=== PATIENT | female | born 1985 | race Caucasian/White ===

== ENCOUNTER → 2016-07-09 | Outpatient (REF) | payer BC ==
[~2016-07-09] MED LIST: ACET50TA PO; ANUS2.5C2 PR; DOCU10ELUD PO; IBUP80TA PO; MOM30SS PO; PRENTAB74 PO; ZOFR4SOL PO
[2016-07-09 14:16] LABS: FOLLICLE STIMULATING HORMONE 6.6 mIU/mL; LUTEINIZING HORMONE 3.2 mIU/mL
== END ==
LOC: M LABDRAW1 13:04
PROVIDERS: ATTEND Family Medicine
DX: N92.6 Irregular menstruation, unspecified (principal)

== ENCOUNTER → 2016-07-16 | Outpatient (CLI) | payer BC ==
--- NOTE | 2016-07-16 21:18 | REP ---
Clinical: Abnormal menstrual cycles. Infertility . Technique: Transabdominal pelvic ultrasound followed by transvaginal examination for better evaluation of the endometrium and adnexa with color Doppler evaluation of the ovaries. Findings: Bladder is unremarkable. Normal anteverted uterus measures 8.8 x 4.3 x 5.4 cm . The endometrial complex measures 11.0 mm thickness. No discrete uterine or endometrial abnormalities are appreciated. Bilateral ovaries are normal in appearance and vascularity without evidence for torsion. Right ovary measures 3.3 x 2.1 x 2.1 cm ; R I = 0.36 . Left ovary measures 3.3 x 2.4 x 3.2 cm with 1.5 cm dominant follicle ; R I = 0.55 . Trace pelvic fluid. No adnexal mass lesion. . Impression: 1. Normal pelvic ultrasound. Signed by Chacorta Allen MD 07/16/2016 09:09 P
== END ==
LOC: M RAD 10:17
PROVIDERS: ATTEND Family Medicine
DX: N92.6 Irregular menstruation, unspecified (principal)

== ENCOUNTER → 2016-08-11 | Outpatient (CLI) | payer BC ==
[2016-08-11 17:18] LABS: BASO # 0.1 K/mm3 (0.0-0.2); BASO % 0.6 % (0.0-1.0); EOS # 0.2 K/mm3 (0.0-0.50); EOS % 1.8 % (0.0-3.0); LARGE UNSTAINED CELL # 0.2 K/mm3 (0.0-0.4); LARGE UNSTAINED CELL % 1.9 % (0.0-4.0); LYMPH % 34.7 % (24.0-44.0); MEAN CORPUSCULAR HGB CONC 33.1 g/dl (32.0-36.5); MEAN CORPUSCULAR VOLUME 87.6 fl (80.0-96.0); MONO # 0.5 K/mm3 (0.0-0.8); MONO % 4.5 % (0.0-5.0); NEUTROPHILS # 6.5 K/mm3 (1.8-7.7); NEUTROPHILS % 56.6 % (36.0-66.0); PLATELET COUNT, AUTOMATED 396 k/mm3 (150-450); RED CELL DISTRIBUTION WIDTH 13.3 % (11.5-14.5); WHITE BLOOD COUNT 11.5 K/mm3 (4.0-10.0)
[2016-08-13 11:18] LABS: HBsAg Prenatal NEGATIVE (NEGATIVE)
== END ==
LOC: M WUC 14:10
PROVIDERS: ATTEND Advanced Practice Midwife
DX: Z36 Encounter for antenatal screening of mother (principal); Z3A.00 Weeks of gestation of pregnancy not specified

== ENCOUNTER → 2016-08-13 | Outpatient (CLI) | payer BC | LOC: M WUC 11:30 | PROVIDERS: ATTEND Family Medicine | DX: R06.02 Shortness of breath (principal) ==

== ENCOUNTER → 2016-09-09 | Outpatient (REF) | payer BC | LOC: M LAB REF 17:00 | PROVIDERS: ATTEND Advanced Practice Midwife | DX: Z36 Encounter for antenatal screening of mother (principal); Z3A.00 Weeks of gestation of pregnancy not specified ==

== ENCOUNTER → 2016-10-01 | Outpatient (REF) | payer BC | LOC: M LAB REF 17:10 | PROVIDERS: ATTEND Family Medicine | DX: N39.0 Urinary tract infection, site not specified (principal) ==

== ENCOUNTER → 2016-10-03 | Outpatient (CLI) | payer BC ==
--- NOTE | 2016-10-03 09:28 | REP ---
RIGHT UPPER QUADRANT ULTRASOUND: Real-time sonographic evaluation of the right upper quadrant performed. Gallbladder demonstrates no evidence of intraluminal sludge or calculi, wall thickening or pericholecystic fluid. There is no intrahepatic or extrahepatic biliary dilatation, common bile duct measuring 4 mm in diameter. Liver demonstrates diffuse heterogeneous increased echotexture compatible with diffuse fibrofatty infiltration. No liver or pancreatic mass is seen sonographically. Right kidney demonstrates no hydronephrosis or nephrolithiasis with normal size at 13.1 cm in length. IMPRESSION: Diffuse fibrofatty infiltration of the liver. Signed by Xu Young MD 10/03/2016 09:49 A
== END ==
LOC: M RAD 08:18
PROVIDERS: ATTEND Family Medicine
DX: K76.0 Fatty (change of) liver, not elsewhere classified (principal); R10.13 Epigastric pain

== ENCOUNTER → 2016-10-17 | Outpatient (REF) | payer BC | LOC: M LAB REF 15:24 | PROVIDERS: ATTEND Obstetrics & Gynecology | DX: R30.0 Dysuria (principal) ==

== ENCOUNTER → 2016-11-05 | Outpatient (REF) | payer BC | LOC: M LAB REF 16:56 | PROVIDERS: ATTEND Advanced Practice Midwife | DX: Z34.82 Encounter for supervision of other normal pregnancy, second trimester (principal) ==

== ENCOUNTER → 2016-11-07 | Outpatient (CLI) | payer BC ==
--- NOTE | 2016-11-07 11:01 | REP ---
OB ULTRASOUND: Real-time sonographic evaluation of the gravid uterus performed. There is a single living intrauterine gestation, estimated gestational age 18 weeks 2 days, EDC 04/08/2017. Today's measurements indicate appropriate growth. BPD 39 mm = 18 weeks 0 days, 38th percentile HC 150 mm = 18 weeks 0 days, 42nd percentile AC 131 mm = 18 weeks 4 days, 57th percentile Femur length 26 mm = 18 weeks 0 days, 40th percentile HC/AC ratio 1.14 within normal range. Estimated weight 233 grams, 46th percentile. Cervix is closed and measures 4.1 cm in length. heart rate 160 beats per minute. SEEN/GROSSLY UNREMARKABLE Lateral ventricles Yes Posterior fossa No Upper lip No Four-chamber heart No LVOT No RVOT No Stomach Yes Cord insertion Yes Three vessel cord Yes Kidneys Yes Bladder Yes Spine No position: Vertex. Placenta: Anterior and grade 0 with no previa or abruption. Amniotic fluid: Within normal limits. Signed by Xu Young MD 11/07/2016 02:23 P
== END ==
LOC: M RAD 09:21
PROVIDERS: ATTEND Specialist
DX: Z36 Encounter for antenatal screening of mother (principal); Z3A.18 18 weeks gestation of pregnancy

== ENCOUNTER → 2016-12-10 | Outpatient (CLI) | payer BC ==
--- NOTE | 2016-12-10 19:13 | REP ---
OB ULTRASOUND: Real-time sonographic evaluation of the gravid uterus is performed. There is a single living intrauterine gestation. The estimated gestational age is 23 weeks, EDC 04/08/17. Today's measurements indicate appropriate growth. BPD 56 mm = 23 weeks 2 days, 56th percentile HC 208 mm = 22 weeks 6 days, 47th percentile AC 189 mm = 23 weeks 5 days, 65th percentile FL 38 mm = 22 weeks 1 day, 30th percentile HC/AC ratio 1.10, within normal range. Estimated weight 556 grams, 46th percentile. Cervix is closed and measures 5.8 cm in length. heart rate 150 beats per minute. SEEN/GROSSLY UNREMARKABLE Lateral ventricles yes Posterior fossa yes Upper lip no Four-chamber heart yes LVOT no RVOT no Stomach yes Cord insertion yes Three vessel cord yes Kidneys yes Bladder yes Spine yes position: Transverse with head toward the maternal left side. Placenta: Anterior and grade 1 with no previa or abruption. Amniotic fluid: Within normal limits. Signed by Xu Young MD 12/10/2016 07:52 P
== END ==
LOC: M RAD 16:15
PROVIDERS: ATTEND Obstetrics & Gynecology
DX: Z36.89 Encounter for other specified antenatal screening (principal); Z3A.23 23 weeks gestation of pregnancy

== ENCOUNTER → 2016-12-30 | Outpatient (CLI) | payer BC ==
[2016-12-30 13:12] LABS: MEAN CORPUSCULAR HEMOGLOBIN 27.9 pg (27.0-33.0); MEAN CORPUSCULAR HGB CONC 32.1 g/dl (32.0-36.5); MEAN CORPUSCULAR VOLUME 87.2 fl (80.0-96.0); PLATELET COUNT, AUTOMATED 326 10^3/uL (150-450); RED CELL DISTRIBUTION WIDTH 13.7 % (11.5-14.5); WHITE BLOOD COUNT 13.6 10^3/uL (4.0-10.0)
== END ==
LOC: M SMT 08:47
PROVIDERS: ATTEND Obstetrics & Gynecology
DX: Z34.82 Encounter for supervision of other normal pregnancy, second trimester (principal)

== ENCOUNTER → 2017-01-15 | Outpatient (CLI) | payer BC | LOC: M LAB 08:21 | PROVIDERS: ATTEND Obstetrics & Gynecology | DX: Z36.89 Encounter for other specified antenatal screening (principal); Z3A.00 Weeks of gestation of pregnancy not specified ==

== ENCOUNTER → 2017-01-20 | Outpatient (CLI) | payer BC ==
--- NOTE | 2017-01-21 07:58 | REP ---
FOLLOWUP OBSTETRICAL ULTRASOUND: COMPARISON: FINDINGS: Ultrasound examination demonstrates single live intrauterine in transverse lie with head towards the maternal left side. motion was identified by technologist. The placenta is noted anteriorly and grade 1 without evidence for placenta previa or abruption. Amniotic fluid volume is normal. Cervix measures 6.3 cm in length and appears closed. Gestational age by LMP 28 weeks 6 days with estimated date of delivery 04/08/2017. Gestational age by current measurements 29 weeks 4 days with estimated date of delivery 04/03/2017. FHR 168 beats per minute. Estimated weight 1341 grams (47th percentile). Amniotic fluid index equals 22.8 cm (9.1-23.1). Umbilical cord S/D ratio equals 2.77 (2.51-3.51). Anatomical assessment demonstrates normal cranium, cavum, facial features, lungs, cardiac ventricular outflow tracts, stomach, cord insertion, three vessel cord, kidneys/bladder and lower extremities. IMPRESSION: Single live intrauterine in transverse lie demonstrating appropriate interval growth. In conjunction with prior examination anatomical assessment is complete and normal. Incomplete
== END ==
LOC: M RAD 16:02
PROVIDERS: ATTEND Obstetrics & Gynecology
DX: Z36.2 Encounter for other antenatal screening follow-up (principal)

== ENCOUNTER → 2017-02-18 | Outpatient (CLI) | payer BC | LOC: M RAD 15:57 | DX: O24.410 Gestational diabetes mellitus in pregnancy, diet controlled (principal); Z3A.33 33 weeks gestation of pregnancy | CPT/HCPCS: 76816 ==

== ENCOUNTER → 2017-02-19 | Outpatient (CLI) | payer BC | LOC: M RAD 15:26 | DX: O24.410 Gestational diabetes mellitus in pregnancy, diet controlled (principal); Z3A.33 33 weeks gestation of pregnancy | CPT/HCPCS: 76815 ==

== ENCOUNTER → 2017-02-26 | Outpatient (CLI) | payer BC | LOC: M SMT 13:02 | DX: O24.415 Gestational diabetes mellitus in pregnancy, controlled by oral hypoglycemic drugs (principal); Z3A.34 34 weeks gestation of pregnancy | CPT/HCPCS: 76819 ==

== ENCOUNTER → 2017-03-05 | Outpatient (CLI) | payer BC | LOC: M SMT 10:10 | DX: O24.415 Gestational diabetes mellitus in pregnancy, controlled by oral hypoglycemic drugs (principal); Z3A.35 35 weeks gestation of pregnancy | CPT/HCPCS: 87081 ==

== ENCOUNTER → 2017-03-11 | Outpatient (CLI) | payer BC | LOC: M SMT 09:37 | DX: O24.415 Gestational diabetes mellitus in pregnancy, controlled by oral hypoglycemic drugs (principal); Z3A.00 Weeks of gestation of pregnancy not specified | CPT/HCPCS: 76816 ==

== ENCOUNTER → 2017-03-19 | Outpatient (CLI) | payer BC | LOC: M SMT 09:41 | DX: O24.415 Gestational diabetes mellitus in pregnancy, controlled by oral hypoglycemic drugs (principal); Z3A.37 37 weeks gestation of pregnancy | CPT/HCPCS: 76819 ==

== ENCOUNTER → 2017-03-22 | Outpatient (CLI) | payer BC | LOC: M LDO 13:57 | DX: O36.8130 Decreased fetal movements, third trimester, not applicable or unspecified (principal); Z3A.37 37 weeks gestation of pregnancy | CPT/HCPCS: 59025 ==

== ENCOUNTER → 2017-03-25 | Outpatient (CLI) | payer BC | LOC: M SMT 10:30 | DX: O24.415 Gestational diabetes mellitus in pregnancy, controlled by oral hypoglycemic drugs (principal) ==

== ENCOUNTER → 2017-03-31 | Outpatient (CLI) | payer BC | LOC: M SMT 13:00 | DX: O24.415 Gestational diabetes mellitus in pregnancy, controlled by oral hypoglycemic drugs (principal); Z3A.38 38 weeks gestation of pregnancy | CPT/HCPCS: 76816 ==

== ENCOUNTER 2017-04-02 11:12 | Inpatient (IN) | payer BC ==
[2017-04-02] MEDS: miSOPROStol 50 MCG 1/2 TAB (S0191) SL ×3 (12:01→20:32)
[2017-04-02 12:34] LABS: HEMOGLOBIN 12.2 g/dl (12.0-16.0); MEAN CORPUSCULAR HEMOGLOBIN 27.4 pg (27.0-33.0); MEAN CORPUSCULAR VOLUME 83.1 fl (80.0-96.0); PLATELET COUNT, AUTOMATED 246 10^3/uL (150-450); RED BLOOD COUNT 4.45 10^6/uL (4.00-5.40); RED CELL DISTRIBUTION WIDTH 14.7 % (11.5-14.5); WHITE BLOOD COUNT 11.5 10^3/uL (4.0-10.0)
[2017-04-02 13:10] LABS: AMPHETAMINES URINE REFLEX NEGATIVE (NEGATIVE); BARBITURATES URINE REFLEX NEGATIVE (NEGATIVE); BENZODIAZEPINES URINE REFLEX NEGATIVE (NEGATIVE); CANNABINOIDS URINE REFLEX NEGATIVE (NEGATIVE); COCAINE METABOLITE URINE REFLE NEGATIVE (NEGATIVE); METHADONE URINE REFLEX NEGATIVE (NEGATIVE); OPIATES URINE REFLEX NEGATIVE (NEGATIVE); PHENCYCLIDINE URINE REFLEX NEGATIVE (NEGATIVE)
[2017-04-02] MEDS: glyBURIDE 2.5 MG TAB PO (19:11)
[2017-04-03] MEDS: miSOPROStol 50 MCG 1/2 TAB (S0191) SL (01:09)
[2017-04-03] MEDS: LR 1,000 ML IV ×2 (09:22→20:30)
[2017-04-03] MEDS: OXYTOCIN DRIP 30 UNITS in APPROPRIATE DILUENT 1 EA IV ×2 (09:22→20:09)
[2017-04-03] MEDS: LACTATED RINGER'S 1000 ML IV (16:55)
[2017-04-03 17:19] LABS: HEMATOCRIT 37.8 % (36.0-47.0); HEMOGLOBIN 12.3 g/dl (12.0-16.0); MEAN CORPUSCULAR HEMOGLOBIN 27.2 pg (27.0-33.0); MEAN CORPUSCULAR HGB CONC 32.5 g/dl (32.0-36.5); MEAN CORPUSCULAR VOLUME 83.6 fl (80.0-96.0); PLATELET COUNT, AUTOMATED 246 10^3/uL (150-450); RED BLOOD COUNT 4.52 10^6/uL (4.00-5.40); RED CELL DISTRIBUTION WIDTH 14.8 % (11.5-14.5); WHITE BLOOD COUNT 10.8 10^3/uL (4.0-10.0)
[2017-04-03] MEDS ORDERED: AZITHROMYCIN INJ 500MG VIAL (J0456) As Ordered (17:44)
[2017-04-03] MEDS: AZITHROMYCIN INJ 500 MG, VIAL MATE ADAPTER 1 EACH in D5W 250 ML IV (17:49)
[2017-04-03] MEDS: BICITRA 30ML SOLN UDC PO (18:12)
[2017-04-03] MEDS ORDERED: ONDANSETRON 4MG/2ML VIAL (J2405) As Ordered (18:28)
[2017-04-03] MEDS ORDERED: MORPHINE PRES-FREE INJ 10 MG/10 ML VIAL (J2274) As Ordered (18:28)
[2017-04-03] MEDS ORDERED: OXYTOCIN INJ 10 UNITS/ML VIAL (J2590) As Ordered (18:28)
[2017-04-03] MEDS ORDERED: KETOROLAC 60 MG/2 ML VIAL (J1885) As Ordered (18:28)
[2017-04-03] MEDS ORDERED: fentaNYL 100 MCG/2 ML INJECTION (J3010) As Ordered (18:28)
[2017-04-03] MEDS ORDERED: NALBUPHINE HCL 10 MG/ML AMP (J2300) IV ×4 (18:43→20:30)
[2017-04-03] MEDS ORDERED: ONDANSETRON 4MG/2ML VIAL (J2405) IV ×5 (18:43→20:30)
[2017-04-03] MEDS ORDERED: NALOXONE INJ 0.4 MG/1 ML VIAL (J2310) IV ×4 (18:43)
[2017-04-03] MEDS ORDERED: METOCLOPRAMIDE INJ 10MG/2ML VIAL (J2765) IV ×4 (18:43→20:30)
[2017-04-03] MEDS ORDERED: ePHEDrine SULFATE 25 MG/5 ML(5MG/ML) SYRINGE As Ordered (18:56)
[2017-04-03] MEDS ORDERED: PROMETHAZINE 25 MG TAB PO (20:15)
[2017-04-03] MEDS ORDERED: MEPERIDINE INJ 25 MG/ML VIAL (J2175) IV ×2 (20:30)
[2017-04-03] MEDS ORDERED: LR 1,000 ML IV (20:30)
[2017-04-03] MEDS ORDERED: MORPHINE 10 MG/ML 1ML VIAL (J2270) IV (20:30)
[2017-04-03] MEDS ORDERED: HYDROmorphone HCL 1 MG/ML SYRINGE (J1170) IV (20:30)
[2017-04-03] MEDS ORDERED: PROMETHAZINE INJ 25 MG/ML VIAL (J2550) IV (20:30)
[2017-04-03] MEDS ORDERED: PERCOCET 5MG/325MG TAB PO ×2 (20:30)
[2017-04-03] MEDS ORDERED: diphenhydrAMINE INJ 50MG/ML VIAL (J1200) IV (20:30)
[2017-04-03] MEDS ORDERED: NORCO, ANEXSIA 5/325MG TABLET (HYDROcodone/ACETAMINOPHEN) PO (20:30)
[2017-04-03] MEDS ORDERED: fentaNYL 100 MCG/2 ML INJECTION (J3010) IV ×2 (20:30)
[2017-04-03] MEDS ORDERED: KETOROLAC 30 MG/ML VIAL (J1885) IV (20:30)
[2017-04-03] MEDS: DOCUSATE SODIUM 100 MG CAP PO (21:00)
[2017-04-03] MEDS: PERCOCET 5MG/325MG TAB PO (22:25)
[2017-04-04] MEDS: KETOROLAC 30 MG/ML VIAL (J1885) IV ×4 (00:46→18:33)
[2017-04-04] MEDS: LR 1,000 ML IV (00:51)
[2017-04-04 06:31] LABS: HEMATOCRIT 29.2 % (36.0-47.0); MEAN CORPUSCULAR HGB CONC 33.2 g/dl (32.0-36.5); MEAN CORPUSCULAR VOLUME 84.4 fl (80.0-96.0); PLATELET COUNT, AUTOMATED 167 10^3/uL (150-450); RED BLOOD COUNT 3.46 10^6/uL (4.00-5.40); RED CELL DISTRIBUTION WIDTH 14.6 % (11.5-14.5); WHITE BLOOD COUNT 11.1 10^3/uL (4.0-10.0)
[2017-04-04 06:40] LABS: HEMOGLOBIN 9.7 g/dl (12.0-16.0)
[2017-04-04] MEDS: RHOGAM 300 MCG (1500 IU) INJ (J2790) IM (07:34)
[2017-04-04] MEDS: MEASLES,MUMPS,RUBELLA VACCINE INJ (MMR-II) (90707) SC (07:34)
[2017-04-04] MEDS: DOCUSATE SODIUM 100 MG CAP PO ×2 (08:37→20:23)
[2017-04-04] MEDS: PRENATAL VITAMINS CHEWABLE TABLET PO (08:37)
[2017-04-04] MEDS: PERCOCET 5MG/325MG TAB PO ×3 (08:38→20:23)
[2017-04-04] MEDS: CEPHALEXIN 500 MG CAP PO (09:29)
[2017-04-04] MEDS: FERROUS GLUCONATE 324 MG TAB PO ×2 (09:29→20:23)
[2017-04-05] MEDS: IBUPROFEN 800 MG TAB PO ×2 (02:44→10:05)
[2017-04-05] MEDS: PERCOCET 5MG/325MG TAB PO ×2 (07:09→12:03)
[2017-04-05] MEDS: FERROUS GLUCONATE 324 MG TAB PO (10:04)
[2017-04-05] MEDS: CEPHALEXIN 500 MG CAP PO (10:04)
[2017-04-05] MEDS: DOCUSATE SODIUM 100 MG CAP PO (10:04)
[2017-04-05] MEDS: PRENATAL VITAMINS CHEWABLE TABLET PO (10:04)
== END 2017-04-05 12:10 | disposition home or self-care (01) | DRG 540 ==
LOC: M LDI 11:12 → M OBS 04-03 21:35
PROVIDERS: Specialist
PROC: 10D00Z1 Extraction of Products of Conception, Low, Open Approach (ICD-10-PCS; principal; 2017-04-03 18:34)
PROC: 3E0P7GC Introduction of Other Therapeutic Substance into Female Reproductive, Via Natural or Artificial Opening (ICD-10-PCS; 2017-04-03 18:34)
DX: O24.425 Gestational diabetes mellitus in childbirth, controlled by oral hypoglycemic drugs (principal); O61.0 Failed medical induction of labor; Z3A.39 39 weeks gestation of pregnancy; Z37.0 Single live birth

== ENCOUNTER → 2017-07-22 | Outpatient (CLI) | payer BC ==
[2017-07-22 09:01] LABS: GLUCOSE, FASTING 90 MG/DL (70-100)
[2017-07-22 09:51] LABS: 1 HR GLUCOSE 141 MG/DL (LESS THAN 199)
[2017-07-22 10:14] LABS: ESTIMATED AVERAGE GLUCOSE 117 MG/DL (60-110); HEMOGLOBIN A1c 5.7 %
[2017-07-22 11:26] LABS: 2 HR GLUCOSE 92 MG/DL (LESS THAN 140)
== END ==
LOC: M LAB 08:12
DX: Z86.32 Personal history of gestational diabetes (principal)
CPT/HCPCS: 82951

== ENCOUNTER → 2018-06-14 | Outpatient (CLI) | payer BC ==
[~2018-06-14] MED LIST changes: -ACET50TA PO; +COLA100C5 PO; -DOCU10ELUD PO; +DOCU5LIQ PO; +FERG27TA PO; +FERR325T3 PO; +GLYB25TA PO; +KEFL250C11 PO; +MAPA500T17 PO; +OXYC1TAB23 PO
[2018-06-14 13:06] LABS: HEMATOCRIT 41.4 % (36.0-47.0); HEMOGLOBIN 13.1 g/dl (12.0-15.5); MEAN CORPUSCULAR HEMOGLOBIN 27.9 pg (27.0-33.0); MEAN CORPUSCULAR HGB CONC 31.6 g/dl (32.0-36.5); MEAN CORPUSCULAR VOLUME 88.1 fl (80.0-96.0); PLATELET COUNT, AUTOMATED 353 10^3/uL (150-450); WHITE BLOOD COUNT 10.6 10^3/uL (4.0-10.0)
[2018-06-14 13:37] LABS: HEMOGLOBIN A1c 6.4 %
== END ==
LOC: M SMT 09:40
PROVIDERS: ATTEND Obstetrics & Gynecology
DX: N92.1 Excessive and frequent menstruation with irregular cycle (principal); R42 Dizziness and giddiness

== ENCOUNTER → 2018-06-22 | Outpatient (REF) | payer BC ==
[2018-06-26 14:15] LABS: HPV HYBRID CAPTURE II Negative (Negative)
== END ==
LOC: M LAB REF 13:19
PROVIDERS: ATTEND Obstetrics & Gynecology
DX: Z12.4 Encounter for screening for malignant neoplasm of cervix (principal)
CPT/HCPCS: 87624; G0123

== ENCOUNTER → 2018-07-01 | Outpatient (REF) | payer BC ==
[2018-07-01 13:53] LABS: FREE T4 0.91 NG/DL (0.76-1.46); THYROID STIMULATING HORMONE 1.29 uIU/ML (0.358-3.740)
== END ==
LOC: M LABDRWAD 12:14
PROVIDERS: ATTEND Obstetrics & Gynecology
DX: R53.82 Chronic fatigue, unspecified (principal)

== ENCOUNTER → 2018-07-19 | Outpatient (REF) | payer BC | LOC: M SFHCPLAZ 17:31 | PROVIDERS: ATTEND Dermatology | DX: D48.3 Neoplasm of uncertain behavior of retroperitoneum (principal) ==

== ENCOUNTER → 2018-08-07 | Outpatient (CLI) | payer BC ==
--- NOTE | 2018-08-07 16:23 | REP ---
PA and lateral chest: There are no comparisons. The lung betancur are clear. The cardiac size is normal. The abraham, mediastinum, and skeletal structures are unremarkable. Impression: Negative PA and lateral chest. Electronically Signed by Xu Alatorre MD 08/07/2018 04:14 P
== END ==
LOC: M WUC 15:54
PROVIDERS: ATTEND Physician Assistant
DX: R07.1 Chest pain on breathing (principal)

== ENCOUNTER → 2018-09-13 | Outpatient (CLI) | payer BC ==
--- NOTE | 2018-09-16 19:44 | SLEEPHOME ---
DATE OF PROCEDURE: 09/13/2018 ORDERED BY: Anayeli Grande. Diagnostic home sleep testing was performed due to concern for the obstructive sleep apnea syndrome in this patient with a history of excessive somnolence, snoring and nonrestorative sleep. For testing a nocturnal T3 respiratory monitoring device was used. Continuous record was made of pulse oxygen saturation airflow, chest, abdominal strain and body position. 10 hours and 59 minutes of data were reviewed. There were 8 hours 26 minutes marked as time in bed. During the interval marked time in bed there were only 24 respiratory events identified of 10 seconds in duration or greater for respiratory event index of 2.4-2.8. Baseline pulse rate 68, pulse rate ranged 54-97. Baseline saturation 94% saturations remained 90% plus throughout the study. Testing was performed in both the supine and nonsupine positions. IMPRESSION: Normal diagnostic home sleep test with snoring and few obstructive respiratory events. RECOMMENDATIONS: If the patient's sleep symptoms persist, may be necessary to pursue formal in laboratory nocturnal polysomnography at this is a more sensitive test.
== END ==
LOC: M SLEEP HO 13:16
PROVIDERS: ATTEND Nurse Practitioner Family
DX: R06.83 Snoring (principal)

== ENCOUNTER → 2018-11-05 | Outpatient (CLI) | payer BC ==
--- NOTE | 2018-11-05 15:57 | REP ---
Left elbow for views : There is no fracture or dislocation. Mineralization and joint spaces are normal. There are no calcifications or foreign bodies. Impression: Negative left elbow . Electronically Signed by Xu Alatorre MD 11/05/2018 03:49 P
== END ==
LOC: M ADAMS 13:21
PROVIDERS: ATTEND Physician Assistant Medical
DX: M25.522 Pain in left elbow (principal)

== ENCOUNTER 2019-02-28 14:00 | Emergency (ER) | payer BC ==
[~2019-02-28] VITALS: Ht 175.3 cm; Wt 119.0 kg
[~2019-02-28 14:00] MED LIST changes: -ESCI20TA PO; -GASTROGRAFIN SOLUTION 30ML (Q9963) As Ordered ONE; -ISOVUE-370 76% 100ML VIAL (Q9967) As Ordered ONE; -OZEM2INJ2 SC
[2019-02-28] MEDS ORDERED: OZEM2INJ2 SC (14:10)
[2019-02-28] MEDS ORDERED: ESCI20TA PO (14:10)
[2019-02-28] MEDS ORDERED: ONDANSETRON 4MG/2ML VIAL (J2405) IV ONE ×2 (15:15→18:00)
[2019-02-28] MEDS ORDERED: MORPHINE 4 MG/ML 1ML VIAL/SYRINGE (J2270) IV ONE (15:15)
[2019-02-28] MEDS ORDERED: NS 1,000 ML IV ONE ×2 (15:15→18:00)
[2019-02-28] MEDS ORDERED: KETOROLAC 30 MG/ML VIAL (J1885) IV ONE (15:15)
[2019-02-28] MEDS ORDERED: CIPROFLOXACIN 400 MG in IV 1 EA IV ONE (15:30)
[2019-02-28] MEDS ORDERED: MORPHINE 2 MG/ML 1ML VIAL (J2270) IV ONE (18:00)
[2019-02-28 19:14] VITALS: BP 135/68
== END 2019-02-28 19:15 | disposition short-term general hospital (02) ==
LOC: M ED 14:00
DX: N13.2 Hydronephrosis with renal and ureteral calculous obstruction (principal); N39.0 Urinary tract infection, site not specified; E11.9 Type 2 diabetes mellitus without complications; I10 Essential (primary) hypertension; Z79.899 Other long term (current) drug therapy; Z91.048 Other nonmedicinal substance allergy status; F17.210 Nicotine dependence, cigarettes, uncomplicated
CPT/HCPCS: 81001; 83605; 84702; 87040; 87077; 87088; 87186; 96361; 96365; 96375; 96376; 99284; J0744; J1885; J2270; J2405

== ENCOUNTER → 2019-02-28 | Outpatient (REF) | payer BC ==
[~2019-02-28] MED LIST changes: +ESCI20TA PO; +OZEM2INJ2 SC
== END ==
LOC: M LAB REF 12:19
PROVIDERS: ATTEND Physician Assistant
DX: R10.813 Right lower quadrant abdominal tenderness (principal)

== ENCOUNTER → 2019-02-28 | Outpatient (CLI) | payer BC ==
[~2019-02-28] MED LIST changes: +GASTROGRAFIN SOLUTION 30ML (Q9963) As Ordered ONE; +ISOVUE-370 76% 100ML VIAL (Q9967) As Ordered ONE
[2019-02-28 11:14] LABS: BASO # 0.1 10^3/uL (0.0-0.2); BASO % 0.4 % (0.0-1.0); EOS # 0.1 10^3/uL (0.0-0.5); EOS % 0.4 % (0.0-3.0); HEMATOCRIT 42.2 % (36.0-47.0); HEMOGLOBIN 13.4 g/dl (12.0-15.5); LYMPH # 1.7 10^3/uL (1.5-5.0); LYMPH % 10.9 % (24.0-44.0); MEAN CORPUSCULAR HEMOGLOBIN 27.9 pg (27.0-33.0); MEAN CORPUSCULAR HGB CONC 31.8 g/dl (32.0-36.5); MEAN CORPUSCULAR VOLUME 87.7 fl (80.0-96.0); MONO # 0.7 10^3/uL (0.0-0.8); MONO % 4.4 % (0.0-5.0); NEUTROPHILS # 13.2 10^3/uL (1.5-8.5); NEUTROPHILS % 83.5 % (36.0-66.0); PLATELET COUNT, AUTOMATED 358 10^3/uL (150-450); RED BLOOD COUNT 4.81 10^6/uL (4.00-5.40); WHITE BLOOD COUNT 15.8 10^3/uL (4.0-10.0)
[2019-02-28 11:27] LABS: ALT/SGPT 52 U/L (12-78); BILIRUBIN,TOTAL 0.3 MG/DL (0.2-1.0); BLOOD UREA NITROGEN 17 MG/DL (7-18); CALCIUM LEVEL 9.2 MG/DL (8.5-10.1); CARBON DIOXIDE LEVEL 25 MEQ/L (21-32); CHLORIDE LEVEL 108 MEQ/L (98-107); CREATININE FOR GFR 1.04 MG/DL (0.55-1.30); GLOMERULAR FILTRATION RATE > 60.0 (>60); GLUCOSE, FASTING 113 MG/DL (70-100); POTASSIUM SERUM 4.1 MEQ/L (3.5-5.1); SODIUM LEVEL 139 MEQ/L (136-145); TOTAL PROTEIN 7.9 GM/DL (6.4-8.2)
--- NOTE | 2019-02-28 15:12 | REP ---
CT ABDOMEN AND PELVIS WITH IV AND ORAL CONTRAST: HISTORY: Right lower quadrant abdominal tenderness. No comparison study. CT CONTRAST DOSE: 100 mL of intravenous Isovue-[address] FINDINGS: Digital preliminary veterinary milk specialist radiographs are unremarkable. Bowel gas pattern is normal. The lung bases are clear. The liver and spleen are normal in size. No focal hepatic lesion is seen. There is rather marked diffuse fatty infiltration of the liver with areas of sparing in the left lobe and adjacent to the gallbladder. No abnormality is noted in the gallbladder or pancreas. Small accessory splenule is visible posteriorly. No adrenal lesion is seen on either side. There is slightly impaired nephrogram phase of contrast enhancement on the right. There is moderate right-sided hydronephrosis with a dilated renal pelvis extending to the level of ureteral pelvic junction where there is an irregular-shaped 9 mm obstructive calculus. There is mild periureteral edema. No bladder calculus is seen. No left ureteral stone is observed. There is an intrarenal calculus in the right kidney lower pole collecting system which measures 5 mm in greatest diameter. No other urinary tract abnormality is seen. No uterine or significant ovarian lesion is seen. A normal appendix is noted. Small and large bowel loops are unremarkable. IMPRESSION: Obstructive 9 mm right ureteropelvic junction calculus. Hydronephrosis. Delayed right-sided nephrogram. Moderate degree of diffuse fatty infiltration of the liver. Electronically Signed by Greg Keating MD 02/28/2019 06:56 P
== END ==
LOC: M RAD 10:24
PROVIDERS: ATTEND Physician Assistant
DX: R10.9 Unspecified abdominal pain (principal)
CPT/HCPCS: 36415; 74177; 80053; 85025; Q9963; Q9967

== ENCOUNTER → 2019-03-16 | Outpatient (REF) | payer BC ==
[~2019-03-16] MED LIST changes: +ADDE1TAB14 PO; +ESCI20TA PO; +FLOM0.4C39 PO; +MM S100C PO; +ONDA4TAB6 PO; +OXYB5TAB10 PO; +OZEM2INJ2 SC; +PHEN-501 PO
== END ==
LOC: M LAB REF 12:26
PROVIDERS: ATTEND Registered Nurse
DX: N20.0 Calculus of kidney (principal)

== ENCOUNTER → 2019-03-18 | Outpatient (REF) | payer BC ==
[2019-03-18 12:48] LABS: HEMATOCRIT 44.7 % (36.0-47.0); HEMOGLOBIN 13.4 g/dl (12.0-15.5); MEAN CORPUSCULAR HEMOGLOBIN 26.7 pg (27.0-33.0); MEAN CORPUSCULAR VOLUME 89.2 fl (80.0-96.0); PLATELET COUNT, AUTOMATED 451 10^3/uL (150-450); RED BLOOD COUNT 5.01 10^6/uL (4.00-5.40); WHITE BLOOD COUNT 9.1 10^3/uL (4.0-10.0)
[2019-03-18 13:04] LABS: INR 0.99; PROTHROMBIN TIME 12.8 SECONDS (11.8-14.0)
[2019-03-18 13:05] LABS: APPEARANCE, URINE CLOUDY (CLEAR); BACTERIA, URINE AUTO 1+ (NEGATIVE); BILIRUBIN, URINE AUTO NEGATIVE (NEGATIVE); BLOOD, URINE BLOOD 2+ (NEGATIVE); COLOR, URINE YELLOW (YELLOW); GLUCOSE, URINE (UA) AUTO NEGATIVE (NEGATIVE); KETONE, URINE AUTO NEGATIVE (NEGATIVE); LEUKOCYTE ESTERASE, URINE AUTO 1+ (NEGATIVE); NITRITE, URINE AUTO NEGATIVE (NEGATIVE); PARTIAL THROMBOPLASTIN TIME 30.1 SECONDS (25.0-38.4); PROTEIN, URINE AUTO NEGATIVE (NEGATIVE); RBC, URINE AUTO 2 /HPF (0-3); SPECIFIC GRAVITY URINE AUTO 1.016 (1.002-1.035); SQUAMOUS EPITHELIAL CELL UR AU 1 /HPF (0-6); UROBILINOGEN, URINE AUTO 0.2 mg/dL (0.0-2.0); WBC, URINE AUTO 9 /HPF (0-3)
[2019-03-18 13:15] LABS: BLOOD UREA NITROGEN 11 MG/DL (7-18); CALCIUM LEVEL 8.8 MG/DL (8.5-10.1); CARBON DIOXIDE LEVEL 29 MEQ/L (21-32); CHLORIDE LEVEL 108 MEQ/L (98-107); CREATININE FOR GFR 0.73 MG/DL (0.55-1.30); GLOMERULAR FILTRATION RATE > 60.0 (>60); GLUCOSE, FASTING 102 MG/DL (70-100); POTASSIUM SERUM 4.6 MEQ/L (3.5-5.1); SODIUM LEVEL 142 MEQ/L (136-145)
== END ==
LOC: M LABDRWAD 12:27 → M SMT 12:27
PROVIDERS: ATTEND Nurse Practitioner Family
DX: Z01.818 Encounter for other preprocedural examination (principal); N20.0 Calculus of kidney

== ENCOUNTER 2019-03-23 08:38 | Day surgery (SDC) | payer BC ==
[~2019-03-23] VITALS: Ht 172.7 cm; Wt 119.3 kg
[~2019-03-23 08:38] MED LIST changes: +CIPROFLOXACIN 400 MG in IV 1 EA IV ONE; +LIDOCAINE 1% MDV 20ML VIAL SQ PRN; +LIDOCAINE 2% INJ 100 MG/5 ML SDV (FOR ANES.) As Ordered ONE; +LR 1,000 ML IV SCH; +MIDAZOLAM INJ 2 MG/2 ML VIAL (J2250) As Ordered ONE; +ONDANSETRON 4MG/2ML VIAL (J2405) As Ordered ONE; +dexameTHASONE 4 MG/ML 1ML VIAL (J1100) As Ordered ONE; +fentaNYL 100 MCG/2 ML INJECTION (J3010) As Ordered ONE; +propofoL 200 MG/20 ML VIAL As Ordered ONE
[2019-03-23] MEDS ORDERED: CONRAY-60 60% 50ML VIAL (Q9961) As Ordered ONE (11:12)
[2019-03-23] MEDS ORDERED: ROCURONIUM BROMIDE 50 MG/5 ML VIAL As Ordered ONE (11:52)
[2019-03-23] MEDS ORDERED: ACETAMINOPHEN 1000MG 100ML IV BTL (OFIRMEV) (J0131 PER 10MG) As Ordered ONE (12:01)
[2019-03-23] MEDS ORDERED: SUGAMMADEX SODIUM 500 MG/5 ML VIAL (BRIDION) As Ordered ONE (12:04)
--- NOTE | 2019-03-23 12:21 | REP ---
Retrograde pyelogram: Two views. History: Cystoscopy. 7 seconds of fluoroscopy time is reported. Findings: A sequence of two last image hold fluoroscopically obtained spot radiographs of the abdomen document right ureteral cannulation, contrast injection, and stent placement. Electronically Signed by Greg Keating MD 03/23/2019 12:12 P
[2019-03-23] MEDS ORDERED: fentaNYL 100 MCG/2 ML INJECTION (J3010) IV PRN (12:30)
[2019-03-23] MEDS ORDERED: ONDANSETRON 4MG/2ML VIAL (J2405) IV PRN (12:30)
[2019-03-23] MEDS ORDERED: oxyCODONE 5MG TAB PO PRN (12:30)
[2019-03-23] MEDS ORDERED: oxyBUTYnin 5 MG TAB PO PRN (12:30)
[2019-03-23] MEDS ORDERED: LR 1,000 ML IV SCH (12:30)
[2019-03-23] MEDS ORDERED: PERCOCET 5MG/325MG TAB PO PRN (12:30)
--- NOTE | 2019-03-23 12:51 | RO ---
DATE OF PROCEDURE: 03/23/2019 PREPROCEDURE DIAGNOSIS: Right ureteral stone. POSTPROCEDURE DIAGNOSIS: Right kidney stone. PROCEDURE: Cystoscopy, right ureteroscopy with basket extraction of stones, right retrograde pyelogram with intraoperative interpretation of images, right ureteral stent exchange. SURGEON: Dr. Noah Kennedy CUSTOMER SUCCESS ASSOCIATE: None. ANESTHESIA: General. OPERATIVE INDICATIONS: This is a 33-year-old female who presented to the hospital approximately one month ago with an obstructing proximal right ureteral stone and urosepsis. She had a right ureteral stent placed and was treated with IV antibiotics. She comes today for treatment of her stones. DESCRIPTION OF PROCEDURE: The patient was brought to the operating room and general anesthesia was induced. Prophylactic antibiotics were infused. She was then placed in dorsal lithotomy position and prepped and draped in the usual sterile fashion. A rigid cystoscope was inserted into the urethral meatus and advanced into the bladder. Once inside the bladder, the previously placed right ureteral stent was seen. The stent was grasped and withdrawn until the distal end was protruding from the urethral meatus. I then advanced a guide wire up the stent and then removed the stent intact. I then advanced the ureteral access sheath up the right collecting system. I went up the access sheath with the flexible ureteroscope. There were no stones within the proximal ureter. Of note, in a lower pole calyx two stones were seen with the largest one measuring around 5-6 mm in size. Both of these stones were removed using a basket. Once done, I examined the rest of the kidney and noticed no stones were seen. A retrograde pyelogram was performed and notable for mild right hydronephrosis with no extravasation. I then withdrew the ureteroscope along with access sheath and no additional stones were seen within the ureter. I then utilized the wire to advance a 6 Mosotho x 22-32 cm JJ ureteral stent into the right collecting system. The wire was removed and there were adequate curls of the stent in the right renal pelvis and in the bladder. The bladder was then emptied of all fluids and this marked the conclusion of the procedure. The patient was taken out of the dorsal lithotomy position, awakened from anesthesia and transported to the recovery room in stable condition. Estimated blood loss: 5 mL. Complications: None. Specimen: Kidney stones. Plan: The patient will followup in the clinic in a week or two for stent removal.
[2019-03-23 13:45] VITALS: BP 132/86
== END 2019-03-23 14:00 | disposition home or self-care (01) ==
LOC: M SDC 08:38
PROVIDERS: ATTEND Urology
DX: N20.0 Calculus of kidney (principal); N20.1 Calculus of ureter; E11.9 Type 2 diabetes mellitus without complications; D64.9 Anemia, unspecified; K21.9 Gastro-esophageal reflux disease without esophagitis; F17.218 Nicotine dependence, cigarettes, with other nicotine-induced disorders; Z79.899 Other long term (current) drug therapy; F41.9 Anxiety disorder, unspecified; F32.9 Major depressive disorder, single episode, unspecified
CPT/HCPCS: 52356; 74420; 81025; 82365; 88300; C1769; C1894; C2617; J0131; J0744; J1100; J2250; J2405; J3010; Q9961

== ENCOUNTER → 2019-03-29 | Outpatient (REF) | payer BC ==
[~2019-03-29] MED LIST changes: -CIPROFLOXACIN 400 MG in IV 1 EA IV ONE; -LIDOCAINE 1% MDV 20ML VIAL SQ PRN; -LIDOCAINE 2% INJ 100 MG/5 ML SDV (FOR ANES.) As Ordered ONE; -LR 1,000 ML IV SCH; -MIDAZOLAM INJ 2 MG/2 ML VIAL (J2250) As Ordered ONE; -ONDANSETRON 4MG/2ML VIAL (J2405) As Ordered ONE; -dexameTHASONE 4 MG/ML 1ML VIAL (J1100) As Ordered ONE; -fentaNYL 100 MCG/2 ML INJECTION (J3010) As Ordered ONE; -propofoL 200 MG/20 ML VIAL As Ordered ONE
== END ==
LOC: M LABDRWAD 16:34
PROVIDERS: ATTEND Urology
DX: R30.0 Dysuria (principal)

== ENCOUNTER → 2019-04-25 | Outpatient (REF) | payer BC ==
[2019-04-25 13:09] LABS: APPEARANCE, URINE CLEAR (CLEAR); BACTERIA, URINE AUTO NEGATIVE (NEGATIVE); BILIRUBIN, URINE AUTO NEGATIVE (NEGATIVE); BLOOD, URINE BLOOD NEGATIVE (NEGATIVE); COLOR, URINE YELLOW (YELLOW); GLUCOSE, URINE (UA) AUTO NEGATIVE (NEGATIVE); KETONE, URINE AUTO NEGATIVE (NEGATIVE); LEUKOCYTE ESTERASE, URINE AUTO NEGATIVE (NEGATIVE); NITRITE, URINE AUTO NEGATIVE (NEGATIVE); PROTEIN, URINE AUTO NEGATIVE (NEGATIVE); RBC, URINE AUTO 0 /HPF (0-3); SPECIFIC GRAVITY URINE AUTO 1.018 (1.002-1.035); SQUAMOUS EPITHELIAL CELL UR AU 1 /HPF (0-6); UROBILINOGEN, URINE AUTO 0.2 mg/dL (0.0-2.0); WBC, URINE AUTO 1 /HPF (0-3)
== END ==
LOC: M SMT 12:46
PROVIDERS: ATTEND Nurse Practitioner Family
DX: N39.0 Urinary tract infection, site not specified (principal)

== ENCOUNTER → 2019-04-28 | Outpatient (CLI) | payer BC ==
--- NOTE | 2019-04-29 08:12 | REP ---
RENAL ULTRASOUND: CLINICAL: Kidney stone. TECHNIQUE: Real-time grayscale ultrasound examinations using curved array transducer. FINDINGS: Bilateral kidneys are normal in contour, size, echogenicity and reniform shape without hydronephrosis, nephrolithiasis, cystic or renal mass lesion. No perinephric fluid collection. Right kidney measures 13.2 x 6.4 x 3.6 cm. Left kidney measures 12.2 x 5.4 x 5.9 cm. The bladder demonstrates normal bilateral ureteral jets. IMPRESSION: Normal renal ultrasound. Electronically Signed by Chacorta Allen MD 05/02/2019 07:38 P
== END ==
LOC: M RAD 11:48
PROVIDERS: ATTEND Nurse Practitioner Family
DX: N20.0 Calculus of kidney (principal)

== ENCOUNTER → 2019-07-11 | Outpatient (CLI) | payer BC ==
--- NOTE | 2019-07-11 10:04 | REP ---
Clinical: Left ankle pain . Technique: AP, lateral, bilateral oblique views left ankle . Findings: No acute fracture or dislocation. Skeletal structures and joint spaces are intact and normal. Ankle mortise appears stable. No subcutaneous emphysema or radiodense foreign body. Incidental small calcaneal heal spur noted. Impression: Normal left ankle radiograph series. Electronically Signed by Chacorta Allen MD 07/11/2019 09:56 A
--- NOTE | 2019-07-11 10:06 | REP ---
Clinical: Left foot pain Technique: AP, lateral, bilateral oblique views left foot . Findings: The osseous structures and joint spaces are intact and normal. There is no evidence for acute fracture or dislocation. Surrounding soft tissues are unremarkable. No subcutaneous emphysema or radiodense foreign body. Incidental small calcaneal heal spur. Impression: Normal age appropriate examination. No obvious significant pathology by radiographic evaluation. Electronically Signed by Chacorta Allen MD 07/11/2019 09:57 A
== END ==
LOC: M ADAMS 09:38
PROVIDERS: ATTEND Physician Assistant
DX: M25.572 Pain in left ankle and joints of left foot (principal); M77.32 Calcaneal spur, left foot

== ENCOUNTER → 2019-09-12 | Outpatient (REF) | payer BC | LOC: M LAB REF 09:19 | PROVIDERS: ATTEND Physician Assistant | DX: L72.9 Follicular cyst of the skin and subcutaneous tissue, unspecified (principal); R21 Rash and other nonspecific skin eruption ==

== ENCOUNTER → 2019-11-03 | Outpatient (CLI) | payer BC ==
--- NOTE | 2019-11-17 16:09 | REP ---
ABDOMINAL RADIOGRAPH: CLINICAL: Abdominal pain. TECHNIQUE: Two supine views of the abdomen and pelvis. FINDINGS: The bowel gas pattern is nonspecific. No obvious abnormal calcifications. No evidence for nephrolithiasis. Skeletal structures are intact. IMPRESSION: Normal nonspecific abdominal radiographs. MTDD
== END ==
LOC: M ADAMS 11:43
PROVIDERS: ATTEND Nurse Practitioner Family
DX: Z87.442 Personal history of urinary calculi (principal)

== ENCOUNTER → 2020-03-19 | Outpatient (REF) | payer BC ==
[~2020-03-19] MED LIST changes: -ESCI20TA PO; +ESCI20TA16 PO
== END ==
LOC: M LAB REF 12:28
PROVIDERS: ATTEND Registered Nurse
DX: R51.9 Headache, unspecified (principal); R53.83 Other fatigue

== ENCOUNTER 2020-11-01 08:44 | Day surgery (SDC) | payer BC ==
[~2020-11-01] VITALS: Ht 175.3 cm; Wt 120.7 kg
[~2020-11-01 08:44] MED LIST changes: +GLYB2.5T7 PO; -GLYB25TA PO
[2020-11-01] MEDS ORDERED: DICY10CA13 PO (09:07)
[2020-11-01] MEDS ORDERED: BUSP5TA PO (09:07)
[2020-11-01] MEDS ORDERED: SERT50TA29 PO (09:07)
[2020-11-01] MEDS ORDERED: AMPH1CAP14 PO (09:07)
[2020-11-01] MEDS ORDERED: AMPH1CAP9 PO (09:07)
[2020-11-01] MEDS ORDERED: TRUL10IN SC (09:07)
[2020-11-01] MEDS ORDERED: NS 1,000 ML IV ONE ×2 (10:35→10:40)
[2020-11-01 11:06] LABS: ALBUMIN 3.6 GM/DL (3.2-5.2); BILIRUBIN,DIRECT 0.1 MG/DL (0.0-0.2); BILIRUBIN,TOTAL 0.5 MG/DL (0.2-1.0); TOTAL PROTEIN 7.3 GM/DL (6.4-8.2)
[2020-11-01 11:40] LABS: BASO # 0.1 10^3/uL (0.0-0.2); BASO % 0.5 % (0.0-1.0); EOS # 0.3 10^3/uL (0.0-0.5); EOS % 2.1 % (0.0-3.0); HEMATOCRIT 42.1 % (36.0-47.0); HEMOGLOBIN 13.4 g/dl (12.0-15.5); LYMPH % 15.1 % (24.0-44.0); MEAN CORPUSCULAR HEMOGLOBIN 27.7 pg (27.0-33.0); MEAN CORPUSCULAR HGB CONC 31.8 g/dl (32.0-36.5); MONO # 0.8 10^3/uL (0.0-0.8); MONO % 6.2 % (2.0-8.0); NEUTROPHILS # 9.8 10^3/uL (1.5-8.5); NEUTROPHILS % 75.6 % (36.0-66.0); PLATELET COUNT, AUTOMATED 343 10^3/uL (150-450); RED BLOOD COUNT 4.84 10^6/uL (4.00-5.40); WHITE BLOOD COUNT 12.9 10^3/uL (4.0-10.0)
[2020-11-01] MEDS ORDERED: ISOVUE-370 76% 100ML VIAL As Ordered ONE (12:08)
--- NOTE | 2020-11-01 12:58 | REP ---
INDICATION: right abd pain, r/o appy COMPARISON: 02/28/2019. TECHNIQUE: CT Scan of the abdomen and pelvis was performed with intravenous administration of 100 cc of Isovue 370, without oral contrast. Sagittal and coronal reconstruction images are performed. FINDINGS: Lung bases: Unremarkable. Liver: There is diffuse fatty infiltration of the liver there is a hepatomegaly, the length of the liver is approximately 23.5 cm. Gallbladder: Unremarkable. Spleen: Normal. Adrenals: Normal. Pancreas: Normal. Kidneys: Normal. Small and large bowel: Unremarkable. Free fluid: There is mild free fluid in the pelvis. Abdominal aorta: No aneurysm or dissection. Adenopathy: None. Appendix: There are findings consistent with appendicitis, posterior to the right colon. Osseous structures: There are degenerative changes of the spine without compression deformity. Pelvis: No mass. IMPRESSION: Appendicitis, located behind the right colon. Mild free fluid in the pelvis. Hepatomegaly with diffuse fatty infiltration of the liver. <Electronically signed by Xu Young > 11/01/20 [id number]
[2020-11-01] MEDS ORDERED: PIPERACILLIN/TAZOBACTAM SOD 3.375 GM in D5W MINI-BAG PLUS 50 ML IV ONE ×2 (13:05→22:45)
[2020-11-01] MEDS ORDERED: ONDANSETRON 4MG/2ML VIAL IV ONE (13:40)
[2020-11-01] MEDS ORDERED: MORPHINE 4 MG/ML 1ML VIAL/SYRINGE (J2270) IV ONE (13:40)
[2020-11-01] MEDS ORDERED: ADDE10TA PO (15:02)
[2020-11-01] MEDS ORDERED: HOME MED LIST COMPLETE! XX SCH (15:05)
[2020-11-01] MEDS: NS 1,000 ML IV SCH ×2 (15:24→23:43)
[2020-11-01] MEDS ORDERED: LIDOCAINE 2% 100MG/5ML SDV (FOR ANES.) As Ordered ONE ×2 (15:37→15:44)
[2020-11-01] MEDS ORDERED: MIDAZOLAM INJ 2MG/2ML VIAL (J2250 PER 1MG) As Ordered ONE (15:37)
[2020-11-01] MEDS ORDERED: ROCURONIUM BROMIDE 50 MG/5 ML VIAL As Ordered ONE ×3 (15:37→16:19)
[2020-11-01] MEDS ORDERED: fentaNYL 100 MCG/2 ML INJECTION (J3010) As Ordered ONE (15:37)
[2020-11-01] MEDS ORDERED: propofoL 200 MG/20 ML VIAL As Ordered ONE ×2 (15:37→15:45)
[2020-11-01] MEDS ORDERED: fentaNYL 250 MCG/5 ML INJECTION (J3010) As Ordered ONE (15:43)
[2020-11-01] MEDS ORDERED: dexameTHASONE 4 MG/ML 1ML VIAL (J1100 PER 1MG) As Ordered ONE ×2 (15:44→16:14)
[2020-11-01] MEDS ORDERED: ONDANSETRON 4MG/2ML VIAL As Ordered ONE ×2 (15:44→16:14)
[2020-11-01] MEDS ORDERED: SUGAMMADEX SODIUM 500 MG/5 ML VIAL (BRIDION) As Ordered ONE ×2 (15:44→16:33)
[2020-11-01] MEDS ORDERED: BUPIVACAINE HCL 0.25% 30ML VIAL As Ordered ONE (15:47)
[2020-11-01] MEDS ORDERED: METOCLOPRAMIDE INJ 10MG/2ML VIAL (J2765 PER 1) As Ordered ONE (16:14)
[2020-11-01] MEDS ORDERED: HYDROmorphone HCL 2 MG/ML 1ML VIAL As Ordered ONE (16:17)
[2020-11-01] MEDS ORDERED: ACETAMINOPHEN 1000MG 100ML IV BTL (OFIRMEV) (J0131 PER 10MG) As Ordered ONE (16:25)
[2020-11-01] MEDS ORDERED: ZOSYN 3.375GM VIAL (J2543) As Ordered ONE (16:27)
[2020-11-01] MEDS ORDERED: MORPHINE 4 MG/ML 1ML VIAL/SYRINGE (J2270) IV PRN (18:05)
[2020-11-01] MEDS ORDERED: IBUPROFEN 600MG TAB PO PRN (18:05)
[2020-11-01] MEDS ORDERED: ACETAMINOPHEN TAB 650MG DOSE (2X325MG) PO PRN (18:05)
[2020-11-01] MEDS ORDERED: LR 1,000 ML IV SCH (18:10)
[2020-11-01] MEDS ORDERED: ONDANSETRON 4MG/2ML VIAL IV PRN (18:10)
[2020-11-01] MEDS ORDERED: oxyCODONE 5MG TAB PO PRN (18:10)
[2020-11-01] MEDS ORDERED: fentaNYL 100 MCG/2 ML INJECTION (J3010) IV PRN (18:10)
[2020-11-01] MEDS ORDERED: KETOROLAC 30 MG/ML 1ML VIAL IV PRN (18:15)
[2020-11-01 18:45] VITALS: BP 124/62
[2020-11-01 19:32] VITALS: BP 114/62
[2020-11-01 20:00] VITALS: BP 116/70
[2020-11-01] MEDS: NORCO, ANEXSIA 5/325MG TABLET (HYDROcodone/ACETAMINOPHEN) PO PRN (20:22)
[2020-11-01 21:00] VITALS: BP 120/72
[2020-11-01 22:00] VITALS: BP 118/70
[2020-11-01] MEDS: busPIRone 5 MG TAB PO SCH (22:02)
[2020-11-01 23:00] VITALS: BP 116/62
[2020-11-02] VITALS: BP 114/62
[2020-11-02 04:00] VITALS: BP 110/60
[2020-11-02] MEDS: NORCO, ANEXSIA 5/325MG TABLET (HYDROcodone/ACETAMINOPHEN) PO PRN (06:42)
[2020-11-02] MEDS ORDERED: SERTRALINE HCL 50 MG TAB PO SCH (09:00)
[2020-11-02] MEDS ORDERED: HYDR-3715 PO (09:34)
--- NOTE | 2020-11-02 09:59 | RO ---
OPERATIVE NOTE DATE OF OPERATION: 11/01/2020 PREOPERATIVE DIAGNOSIS: Acute retrocolic appendicitis. POSTOPERATIVE DIAGNOSIS: Acute retrocolic appendicitis. PROCEDURE: Laparoscopic appendectomy SURGEON: Riley Owen MD \ANESTHESIA: General INDICATIONS FOR THE PROCEDURE: The patient is a 35-year-old woman who presented to the emergency department with a two-day history of abdominal pain becoming localized to the right mid lateral abdomen. She had some associated nausea and vomiting. She presented to the emergency department and was found to have tenderness as noted. Her white blood cell count was mildly elevated. A CT scan showed a retrocolic appendix with diffuse inflammation, but no evidence of abscess or perforation. She is now for a laparoscopic appendectomy. DESCRIPTION OF PROCEDURE: The patient was brought to the operating room and placed on the table in a supine position. She was placed under general endotracheal anesthesia. The patient's abdomen was prepped and draped in a sterile fashion. The initial trocar site was selected in the supraumbilical region. Her appendix was known to be somewhat higher in the right mid to upper abdomen and so this was moved a little higher in the abdomen. A short transverse incision was made and a Veress needle was inserted. After a positive hanging drop test, the abdomen was inflated with carbon dioxide gas. A scalpel was used to incise the fascia at the midline and a 5 mm port was placed. The scope was passed. Initial examination showed a small amount of gas insufflated into the omentum in the upper abdomen. There was no evidence of bleeding or bowel injury. The right colon was dilated with air. The ileocecal valve appeared to lie approximately at the level of the umbilicus. A second port, 5 mm in diameter, was placed in the left mid abdomen slightly below the level of the umbilicus and a third port was placed in the left lower quadrant slightly to the left of the midline. The patient was tilted to a slight Trendelenburg position and rolled to the left. Graspers were inserted through the two lower trocar sites. The terminal ileum was adherent to the lateral abdominal wall on the right and several adhesions were divided with the hook cautery. It was clear that the appendix was truly retrocolic, but also appeared to be extraperitoneal. It was possible to rotate the right colon medially and the very base of the appendix was identified as it extended superiorly behind the colon. I was able, using the Harmonic scalpel, to work through the fibrofatty tissues around the base of the appendix. The appendix was then stapled with a linear cutter endoscopic stapling device. This was with a green load. The appendix was transected right at its juncture with the cecum. It was then possible to grasp the appendix and work towards the distal appendix with dissection. It was necessary to place and 4th trocar, which was 5 mm in diameter, in the left upper quadrant as an additional grasper to hold the colon to the left. The appendix was dissected free from the surrounding fibrofatty tissues along the posterior aspect of the right colon. This was then placed into an Endopouch device. The right pericolic gutter and right upper quadrant were then irrigated with saline. Inspection showed no evidence of any bleeding and no sign of injury of the right colon. The patient was returned to a flat position. The abdomen was deflated and trocars were removed. The appendix was recovered through the supraumbilical site. It was necessary to extend the incision somewhat because of her obesity to allow primary closure of the trocar site with interrupted sutures of 1-0 Vicryl. The skin incisions were then closed with buried sutures of 4-0 Vicryl and Steri-Strips. Light dressings were applied. The patient tolerated the procedure well without apparent complication. She was awakened in the operating room, extubated and moved to the recovery room in stable condition. MIKE
[2020-11-02 10:00] VITALS: BP 111/62
[2020-11-02] MEDS: busPIRone 5 MG TAB PO SCH (10:03)
--- NOTE | 2020-11-02 10:34 | DS.PDOC ---
Discharge Summary General Date of Admission 11/01/2020 Date of Discharge 11/03/2019 Discharge Summary General surgery. Dr. Owen PROCEDURES PERFORMED DURING STAY: Laparoscopic appendectomy 11/01/[address] Owen ADMITTING DIAGNOSES: Acute appendicitis Anxiety Depression GERD History of kidney stone DM DISCHARGE DIAGNOSES: Acute appendicitis status post appendectomy Anxiety Depression GERD History of kidney stone DM COMPLICATIONS/CHIEF COMPLAINT: Acute Appendicitis. HISTORY OF PRESENT ILLNESS: The patient is a 35-year-old female who reported to the emergency department 11/01/2020 reporting abdominal pain which had started Thursday around the umbilicus. It had moved to the right side and was associated with nausea, no vomiting. She had gone to urgent care on Thursday and was treate d with Bentyl and Zofran but this did not seem to help. Imaging in the emergency department indicated acute appendicitis. Admission was arranged. HOSPITAL COURSE: The patient is status post laparoscopic appendectomy as per Dr. Owen 11/01/2020. The patient tolerated the procedure well. Postoperatively she was placed on clear liquids and advanced to regular diet. Pain has been well controlled, she has used 2 doses of hydrocodone during admission. She has been out of bed to the bathroom. She had breakfast this morning. Incisions are all clean/dry/intact. The patient is felt stable for discharge 11/02/2020. DISCHARGE MEDICATIONS: Please see below. ALLERGIES: Please see below. PHYSICAL EXAMINATION ON DISCHARGE: VITAL SIGNS: 98.6, heart rate 85, respiratory rate 21, blood pressure 110/60, 93% room air. GENERAL: No acute distress, sitting up in bed having breakfast HEENT: MMM CARDIOVASCULAR EXAMINATION: S1-S2 regular rate rhythm RESPIRATORY EXAMINATION: Lungs are clear to auscultation ABDOMINAL EXAMINATION: Soft, mild tenderness around incision sites only, dressings are clean/dry/intact EXTREMITIES: No edema LABORATORY DATA: Please see below. IMAGING: CT abdomen/pelvis IMPRESSION: Appendicitis, located behind the right colon. Mild free fluid in the pelvis. Hepatomegaly with diffuse fatty infiltration of the liver. <Electronically signed by Xu Young > 11/01/20 1254 DISCHARGE PLAN: Discharge home DISCHARGE INSTRUCTIONS: Regular diet Light activity. No heavy pushing, pulling, lifting greater than 20 pounds for 2 weeks. Okay to shower but no bath or swimming. Continue to keep incisions clean and dry, dry dressing as needed. Call back to the office with any questions or concerns, wound drainage, fevers, chills or increasing pain Hydrocodone 5/325 1 tablet p.o. every 6 hours as needed for severe pain dispense #10. I stop reference #[id number]. DISCHARGE CONDITION: Stable. TIME SPENT ON DISCHARGE: Greater than 30 minutes. Vital Signs/I&Os Vital Signs Date Time Temp Pulse Resp B/P (MAP) Pulse Ox O2 Delivery O2 Flow Rate FiO2 11/02/20 07:12 17 11/02/20 06:42 Room Air 11/02/20 04:00 98.6 85 110/60 (77) 93 11/01/20 17:59 10.0 I&O- Last 24 Hours up to 6 AM 11/02/20 05:59 Intake Total 3450 ml Output Total 300 ml Balance 3150 ml Laboratory Data Labs 24H Laboratory Tests 2 11/01/20 10:30: POC Glucose (Misc Panel) 103, POC Sodium (Misc Panel) 139, POC Potassium (Misc Panel) 3.8, POC Chloride (Misc Panel) 101, POC Total CO2 (Misc Panel) 25.0, POC Blood Urea Nitrogen (Misc Panel 6L, POC Ionized Calcium (Misc Panel) 4.6, POC Creatinine (Misc Panel) 0.9, POC Hematocrit (Misc Panel) 43.0 11/01/20 10:32: POC Beta HCG, Quantitative < 5.0 11/01/20 13:25: Coronavirus (COVID-19)(PCR) NEGATIVE Discharge Medications Scheduled Buspirone HCl (Buspirone HCl) 5 Mg Tablet, 5 MG PO TID, (Reported) Dextroamphetamine/Amphetamine (Dextroamp-Amphet ER 10 mg Cap) 10 Mg Cap.er.24h, 10 MG PO DAILY, (Reported) Dulaglutide (Trulicity) 0.75 Mg/0.5 Ml Pen.injctr, 0.75 MG SC QWEEK, (Reported) FRIDAYS Sertraline HCl (Sertraline HCl) 50 Mg Tablet, 50 MG PO DAILY, (Reported) Scheduled PRN Dextroamphetamine/Amphetamine (Adderall 10 mg Tablet) 10 Mg Tablet, 10 MG PO DAILY PRN for HYPERACTIVITY, (Reported) Hydrocodone/Acetaminophen (Hydrocodone-Acetamin 5-325 mg) 1 Each Tablet, 1 TAB PO Q6HP PRN for SEVERE PAIN (PS 8-10) Ondansetron (Ondansetron Odt) 4 Mg Tab.rapdis, 4 MG PO Q6H PRN for NAUSEA OR VOMITING, (Reported) Allergies Coded Allergies: SUTURES (Verified Allergy, Intermediate, "chromic gut sutures- tissue broke down", 03/22/19) Maribell Medina Nov 02, 2020 10:34 Riley Owen Nov 02, 2020 14:20
== END 2020-11-02 11:31 | disposition home or self-care (01) ==
LOC: M ED 08:44 → M SDC 08:45 → M MSPAV 18:42 → M SDC 11-02 11:31
PROVIDERS: ATTEND Surgery
DX: K36 Other appendicitis (principal); E11.9 Type 2 diabetes mellitus without complications; K21.9 Gastro-esophageal reflux disease without esophagitis; F41.9 Anxiety disorder, unspecified; F32.9 Major depressive disorder, single episode, unspecified; D64.9 Anemia, unspecified; F17.218 Nicotine dependence, cigarettes, with other nicotine-induced disorders
CPT/HCPCS: 44970; 74177; 80047; 80076; 81001; 83690; 84702; 85025; 88304; 96365; 96366; 96375; 99284; J0131; J1100; J1170; J2250; J2270; J2405; J2543; J2765; J3010; Q9967; U0002

== ENCOUNTER → 2021-10-29 | Outpatient (CLI) | payer BC ==
[~2021-10-29] MED LIST changes: +ADDE10TA PO; +AMPH1CAP14 PO; +AMPH1CAP9 PO; +BUSP5TA PO; +DICY10CA13 PO; +HYDR-3715 PO; +SERT50TA29 PO; +TRUL10IN SC
[2021-10-29 18:15] LABS: BASO # 0.1 10^3/uL (0.0-0.2); BASO % 0.9 % (0.0-1.0); EOS # 0.6 10^3/uL (0.0-0.5); EOS % 4.9 % (0.0-3.0); HEMATOCRIT 41.1 % (36.0-47.0); HEMOGLOBIN 12.9 g/dl (12.0-15.5); LYMPH # 3.9 10^3/uL (1.5-5.0); LYMPH % 31.2 % (24.0-44.0); MEAN CORPUSCULAR HGB CONC 31.4 g/dl (32.0-36.5); MONO # 0.7 10^3/uL (0.0-0.8); MONO % 5.4 % (2.0-8.0); NEUTROPHILS # 7.1 10^3/uL (1.5-8.5); PLATELET COUNT, AUTOMATED 401 10^3/uL (150-450); RED BLOOD COUNT 4.78 10^6/uL (4.00-5.40); WHITE BLOOD COUNT 12.4 10^3/uL (4.0-10.0)
[2021-10-29 18:58] LABS: ALBUMIN 3.8 GM/DL (3.2-5.2); ALT/SGPT 48 U/L (12-78); BILIRUBIN,TOTAL 0.3 MG/DL (0.2-1.0); BLOOD UREA NITROGEN 10 MG/DL (7-18); CALCIUM LEVEL 8.9 MG/DL (8.5-10.1); CARBON DIOXIDE LEVEL 28 MEQ/L (21-32); CHLORIDE LEVEL 104 MEQ/L (98-107); CREATININE FOR GFR 0.86 MG/DL (0.55-1.30); GLOMERULAR FILTRATION RATE > 60.0 (>60); GLUCOSE, FASTING 120 MG/DL (70-100); POTASSIUM SERUM 4.6 MEQ/L (3.5-5.1); SODIUM LEVEL 138 MEQ/L (136-145)
[2021-10-29 19:25] LABS: HEMOGLOBIN A1c 6.1 %
[2021-10-29 19:37] LABS: PROLACTIN 9.9 NG/ML
== END ==
LOC: M ADAMS 15:51
PROVIDERS: ATTEND Nurse Practitioner Family
DX: N93.9 Abnormal uterine and vaginal bleeding, unspecified (principal)

== ENCOUNTER → 2021-11-14 | Outpatient (CLI) | payer BC | LOC: M RAD 16:12 | PROVIDERS: ATTEND Nurse Practitioner Family | DX: R10.2 Pelvic and perineal pain (principal) ==

== ENCOUNTER → 2022-02-11 | Outpatient (REF) | payer BC ==
[2022-02-11 14:54] LABS: BASO # 0.1 10^3/uL (0.0-0.2); BASO % 0.8 % (0.0-1.0); EOS # 0.7 10^3/uL (0.0-0.5); EOS % 5.5 % (0.0-3.0); HEMATOCRIT 41.4 % (36.0-47.0); LYMPH # 4.4 10^3/uL (1.5-5.0); LYMPH % 32.4 % (24.0-44.0); MEAN CORPUSCULAR HEMOGLOBIN 27.4 pg (27.0-33.0); MEAN CORPUSCULAR HGB CONC 31.4 g/dl (32.0-36.5); MEAN CORPUSCULAR VOLUME 87.2 fl (80.0-96.0); MONO # 0.7 10^3/uL (0.0-0.8); MONO % 5.2 % (2.0-8.0); NEUTROPHILS # 7.4 10^3/uL (1.5-8.5); NEUTROPHILS % 55.5 % (36.0-66.0); PLATELET COUNT, AUTOMATED 430 10^3/uL (150-450); RED BLOOD COUNT 4.75 10^6/uL (4.00-5.40); WHITE BLOOD COUNT 13.4 10^3/uL (4.0-10.0)
[2022-02-11 15:16] LABS: ALBUMIN 3.6 G/DL (3.2-5.2); ALKALINE PHOSPHATASE 61 U/L (46-116); ALT/SGPT 34 U/L (7.0-40); AST/SGOT 20 U/L (<34); BILIRUBIN,TOTAL < 0.2 MG/DL (0.3-1.2); BLOOD UREA NITROGEN 11 MG/DL (9-23); CALCIUM LEVEL 9.1 MG/DL (8.5-10.1); CARBON DIOXIDE LEVEL 26 MMOL/L (20-31); CHLORIDE LEVEL 104 MMOL/L (98-107); CREATININE FOR GFR 0.73 MG/DL (0.55-1.30); GLOMERULAR FILTRATION RATE > 60.0 (>60); GLUCOSE, FASTING 157 MG/DL (60-100); IRON (FE) 40 UG/DL (50-170); PERCENT SATURATION 9.9 % (13.2-45.0); POTASSIUM SERUM 4.6 MMOL/L (3.5-5.1); SODIUM LEVEL 138 MMOL/L (136-145); TOTAL IRON BINDING CAPACITY 406 UG/DL (250-425); TOTAL PROTEIN 6.9 G/DL (5.7-8.2)
[2022-02-11 15:18] LABS: FERRITIN 7.6 NG/ML (7.3-270.7); VITAMIN B12 LEVEL 343 PG/ML (211-911)
== END ==
LOC: M PLALAB 13:43
PROVIDERS: ATTEND Advanced Practice Midwife
DX: N92.1 Excessive and frequent menstruation with irregular cycle (principal); R53.82 Chronic fatigue, unspecified

== ENCOUNTER → 2022-03-05 | Outpatient (REF) | payer BC | LOC: M PLALAB 16:47 | PROVIDERS: ATTEND Advanced Practice Midwife | DX: N92.1 Excessive and frequent menstruation with irregular cycle (principal) ==

== ENCOUNTER → 2023-01-13 | Outpatient (REF) | payer BC ==
[~2023-01-13] MED LIST changes: +AMPH1CAP16 PO; +DICY-61 PO; -DICY10CA13 PO; +FERR324T21 PO; -OXYB5TAB10 PO; +OXYB5TAB11 PO; +SEMA1PEN2 SQ; +TRAN650T PO
[2023-01-13 20:18] LABS: HEMATOCRIT 42.4 % (36.0-47.0); HEMOGLOBIN 13.6 g/dl (12.0-15.5); MEAN CORPUSCULAR HEMOGLOBIN 27.9 pg (27.0-33.0); MEAN CORPUSCULAR HGB CONC 32.1 g/dl (32.0-36.5); MEAN CORPUSCULAR VOLUME 87.1 fl (80.0-96.0); PLATELET COUNT, AUTOMATED 365 10^3/uL (150-450); RED BLOOD COUNT 4.87 10^6/uL (4.00-5.40)
[2023-01-13 20:21] LABS: HEMOGLOBIN A1c 5.5 % (4.0-6.0)
[2023-01-13 20:38] LABS: ALBUMIN 3.5 G/DL (3.2-5.2); ALKALINE PHOSPHATASE 60 U/L (46-116); ALT/SGPT 24 U/L (7.0-40); AST/SGOT 12 U/L (<34); BILIRUBIN,TOTAL 0.3 MG/DL (0.3-1.2); BLOOD UREA NITROGEN 11 MG/DL (9-23); CALCIUM LEVEL 8.8 MG/DL (8.5-10.1); CARBON DIOXIDE LEVEL 29 MMOL/L (20-31); CHLORIDE LEVEL 104 MMOL/L (98-107); CREATININE FOR GFR 0.81 MG/DL (0.55-1.30); GLOMERULAR FILTRATION RATE > 60.0 (>60); GLUCOSE, FASTING 61 MG/DL (60-100); IRON (FE) 35 UG/DL (50-170); PERCENT SATURATION 9.9 % (13.2-45.0); POTASSIUM SERUM 4.8 MMOL/L (3.5-5.1); SODIUM LEVEL 143 MMOL/L (136-145); TOTAL IRON BINDING CAPACITY 353 UG/DL (250-425); TOTAL PROTEIN 6.7 G/DL (5.7-8.2)
[2023-01-13 20:42] LABS: FERRITIN 17.8 NG/ML (7.3-270.7)
== END ==
LOC: M PLALAB 17:47 → M LABDRWAD 17:47
PROVIDERS: ATTEND Registered Nurse
DX: D64.9 Anemia, unspecified (principal); E11.9 Type 2 diabetes mellitus without complications

== ENCOUNTER 2023-04-13 15:30 | Outpatient (CLI) | payer BC ==
[~2023-04-13] VITALS: Ht 175.3 cm; Wt 112.0 kg
[~2023-04-13 15:30] MED LIST changes: +AMPH1TAB2; +FLUO10CA18; -OXYB5TAB11 PO; +OXYB5TAB14 PO
[2023-04-13 15:40] VITALS: BP 153/75; O2SAT 100
[2023-04-13] MEDS: FERRIC CARBOXYMALTOSE INJ 750 MG in NS 250 ML (>50kg) IV ONE (15:47)
[2023-04-13] MEDS ORDERED: VITA100T59 PO (15:54)
[2023-04-13] MEDS ORDERED: B-12100010 PO (15:55)
[2023-04-13 17:20] VITALS: BP 129/88; O2SAT 98
== END 2023-04-13 17:20 ==
LOC: M INFU 15:30
PROVIDERS: ATTEND Nurse Practitioner
DX: D50.9 Iron deficiency anemia, unspecified (principal)
CPT/HCPCS: 96365; J1439

== ENCOUNTER 2023-04-20 16:05 | Outpatient (CLI) | payer BC ==
[~2023-04-20 16:05] MED LIST changes: +B-12100010 PO; +VITA100T59 PO
[2023-04-20 16:15] VITALS: BP 134/62; O2SAT 99
[2023-04-20] MEDS: FERRIC CARBOXYMALTOSE INJ 750 MG in NS 250 ML (>50kg) IV ONE (16:18)
[2023-04-20 17:31] VITALS: BP 128/70; O2SAT 99
== END 2023-04-20 16:31 | disposition home or self-care (01) ==
LOC: M INFU 16:05
PROVIDERS: ATTEND Nurse Practitioner
DX: D50.9 Iron deficiency anemia, unspecified (principal); Z88.8 Allergy status to other drugs, medicaments and biological substances
CPT/HCPCS: 96365; J1439

== ENCOUNTER → 2023-05-26 | Outpatient (CLI) | payer BC | LOC: M RAD 14:59 | PROVIDERS: ATTEND Physician Assistant | DX: J30.2 Other seasonal allergic rhinitis (principal) ==

== ENCOUNTER → 2023-06-01 | Outpatient (REF) | payer BC ==
[2023-06-01 18:06] LABS: BASO # 0.1 10^3/uL (0.0-0.2); BASO % 0.9 % (0.0-1.0); EOS # 0.5 10^3/uL (0.0-0.5); EOS % 3.5 % (0.0-3.0); HEMATOCRIT 46.3 % (36.0-47.0); HEMOGLOBIN 15.1 g/dl (12.0-15.5); LYMPH # 4.3 10^3/uL (1.5-5.0); LYMPH % 31.8 % (24.0-44.0); MEAN CORPUSCULAR HEMOGLOBIN 28.9 pg (27.0-33.0); MEAN CORPUSCULAR HGB CONC 32.6 g/dl (32.0-36.5); MEAN CORPUSCULAR VOLUME 88.5 fl (80.0-96.0); MONO # 0.8 10^3/uL (0.0-0.8); MONO % 5.5 % (2.0-8.0); NEUTROPHILS # 7.8 10^3/uL (1.5-8.5); NEUTROPHILS % 57.6 % (36.0-66.0); PLATELET COUNT, AUTOMATED 438 10^3/uL (150-450); RED BLOOD COUNT 5.23 10^6/uL (4.00-5.40); WHITE BLOOD COUNT 13.6 10^3/uL (4.0-10.0)
[2023-06-01 18:30] LABS: BLOOD UREA NITROGEN 10 MG/DL (9-23); CALCIUM LEVEL 9.1 MG/DL (8.5-10.1); CARBON DIOXIDE LEVEL 28 MMOL/L (20-31); CHLORIDE LEVEL 103 MMOL/L (98-107); CREATININE FOR GFR 0.82 MG/DL (0.55-1.30); GLOMERULAR FILTRATION RATE > 60.0 (>60); GLUCOSE, FASTING 92 MG/DL (60-100); IRON (FE) 57 UG/DL (50-170); PERCENT SATURATION 18.3 % (13.2-45.0); POTASSIUM SERUM 4.4 MMOL/L (3.5-5.1); SODIUM LEVEL 139 MMOL/L (136-145); TOTAL IRON BINDING CAPACITY 312 UG/DL (250-425)
[2023-06-01 18:32] LABS: HEMOGLOBIN A1c 5.3 % (4.0-6.0)
== END ==
LOC: M SFHCADAM 17:18
PROVIDERS: ATTEND Registered Nurse
DX: Z01.818 Encounter for other preprocedural examination (principal); E11.9 Type 2 diabetes mellitus without complications; D50.9 Iron deficiency anemia, unspecified

== ENCOUNTER → 2023-07-16 | Outpatient (CLI) | payer BC ==
[~2023-07-16] MED LIST changes: +FLUO-290; -FLUO10CA18
== END ==
LOC: M PLARAD 15:04
PROVIDERS: ATTEND Registered Nurse
DX: R22.32 Localized swelling, mass and lump, left upper limb (principal)

== ENCOUNTER → 2023-08-10 | Outpatient (CLI) | payer BC ==
[~2023-08-10] MED LIST changes: +ONDA-282 PO; -ONDA4TAB6 PO
[2023-08-10 18:44] LABS: HEMATOCRIT 43.1 % (36.0-47.0); HEMOGLOBIN 14.3 g/dl (12.0-15.5); MEAN CORPUSCULAR HEMOGLOBIN 29.7 pg (27.0-33.0); MEAN CORPUSCULAR HGB CONC 33.2 g/dl (32.0-36.5); MEAN CORPUSCULAR VOLUME 89.6 fl (80.0-96.0); PLATELET COUNT, AUTOMATED 407 10^3/uL (150-450); RED BLOOD COUNT 4.81 10^6/uL (4.00-5.40); WHITE BLOOD COUNT 11.6 10^3/uL (4.0-10.0)
[2023-08-10 19:01] LABS: HEMOGLOBIN A1c 5.5 % (4.0-6.0)
[2023-08-10 19:12] LABS: ALKALINE PHOSPHATASE 57 U/L (46-116); ALT/SGPT 33 U/L (7.0-40); AST/SGOT 11 U/L (<34); BILIRUBIN,TOTAL 0.4 MG/DL (0.3-1.2); BLOOD UREA NITROGEN 9 MG/DL (9-23); CARBON DIOXIDE LEVEL 27 MMOL/L (20-31); CHLORIDE LEVEL 106 MMOL/L (98-107); CHOLESTEROL LEVEL 211 MG/DL (<200); CHOLESTEROL RISK RATIO 4.48 (<5); CREATININE FOR GFR 0.82 MG/DL (0.55-1.30); GLOMERULAR FILTRATION RATE > 60.0 (>60); GLUCOSE, FASTING 106 MG/DL (60-100); LDL CHOLESTEROL 131.4 MG/DL (<100); POTASSIUM SERUM 4.2 MMOL/L (3.5-5.1); SODIUM LEVEL 137 MMOL/L (136-145); TOTAL IRON BINDING CAPACITY 333 UG/DL (250-425); TOTAL PROTEIN 6.9 G/DL (5.7-8.2); TRIGLYCERIDES LEVEL 163 MG/DL (<150)
[2023-08-10 19:13] LABS: IRON (FE) 53 UG/DL (50-170); PERCENT SATURATION 15.9 % (13.2-45.0)
[2023-08-10 19:16] LABS: FERRITIN 154.1 NG/ML (7.3-270.7)
== END ==
LOC: M LAB 18:15
PROVIDERS: ATTEND Registered Nurse
DX: E11.9 Type 2 diabetes mellitus without complications (principal); D50.9 Iron deficiency anemia, unspecified; Z13.220 Encounter for screening for lipoid disorders

== ENCOUNTER → 2023-10-05 | Outpatient (CLI) | payer BC ==
[~2023-10-05] MED LIST changes: +BUSP10TA
== END ==
LOC: M WHC 11:42
PROVIDERS: ATTEND Obstetrics & Gynecology
DX: R10.2 Pelvic and perineal pain (principal)

== ENCOUNTER → 2023-12-28 | Outpatient (CLI) | payer BC ==
[2023-12-28 14:25] LABS: HEMOGLOBIN A1c 5.6 % (4.0-6.0)
[2023-12-28 14:27] LABS: ALKALINE PHOSPHATASE 65 U/L (35-104); ALT/SGPT 26 U/L (7.0-40); AST/SGOT 9 U/L (<34); BILIRUBIN,TOTAL 0.4 MG/DL (0.3-1.2); BLOOD UREA NITROGEN 11 MG/DL (9-23); CALCIUM LEVEL 9.4 MG/DL (8.5-10.1); CARBON DIOXIDE LEVEL 28 MMOL/L (20-31); CHLORIDE LEVEL 108 MMOL/L (98-107); CHOLESTEROL LEVEL 173 MG/DL (<200); CHOLESTEROL RISK RATIO 3.31 (<5); CREATININE FOR GFR 0.72 MG/DL (0.55-1.30); GLOMERULAR FILTRATION RATE > 60.0 (>60); GLUCOSE, FASTING 78 MG/DL (60-100); HDL CHOLESTEROL 52.2 MG/DL (>40); MAGNESIUM LEVEL 2.1 MG/DL (1.8-2.4); NON-HDL-C 120.8 MG/DL; POTASSIUM SERUM 4.2 MMOL/L (3.5-5.1); SODIUM LEVEL 141 MMOL/L (136-145); TOTAL PROTEIN 7.4 G/DL (5.7-8.2); TRIGLYCERIDES LEVEL 159 MG/DL (<150)
[2023-12-28 14:31] LABS: THYROXINE (T4) 6.5 UG/DL (4.5-10.9)
[2023-12-28 14:32] LABS: FOLLICLE STIMULATING HORMONE 5.8 mIU/ML; LUTEINIZING HORMONE 5.2 mIU/ML
[2023-12-28 14:33] LABS: FREE T4 0.98 NG/DL (0.89-1.76); TESTOSTERONE 24 NG/DL (14-76)
[2023-12-28 14:34] LABS: VITAMIN B12 LEVEL 973 PG/ML (211-911)
[2023-12-28 14:35] LABS: FREE T3 3.3 PG/ML (2.3-4.2)
[2023-12-28 14:36] LABS: THYROID PEROXIDASE ANTIBODY 47 U/ML (<60.0)
[2023-12-30 01:03] LABS: DEHYDROEPIANDROSTERONE SULFATE 93 mcg/dL (19-237)
== END ==
LOC: M LAB 12:50
PROVIDERS: ATTEND Registered Nurse
DX: N93.9 Abnormal uterine and vaginal bleeding, unspecified (principal)

== ENCOUNTER → 2023-12-28 | Outpatient (CLI) | payer BC ==
[2023-12-28 14:05] LABS: BASO # 0.1 10^3/uL (0.0-0.2); EOS # 0.4 10^3/uL (0.0-0.5); EOS % 3.7 % (0.0-3.0); HEMATOCRIT 47.4 % (36.0-47.0); HEMOGLOBIN 15.3 g/dl (12.0-15.5); LYMPH # 3.1 10^3/uL (1.5-5.0); LYMPH % 27.3 % (24.0-44.0); MEAN CORPUSCULAR HGB CONC 32.3 g/dl (32.0-36.5); MEAN CORPUSCULAR VOLUME 89.8 fl (80.0-96.0); MONO # 0.8 10^3/uL (0.0-0.8); MONO % 6.6 % (2.0-8.0); NEUTROPHILS # 6.9 10^3/uL (1.5-8.5); NEUTROPHILS % 60.9 % (36.0-66.0); PLATELET COUNT, AUTOMATED 431 10^3/uL (150-450); RED BLOOD COUNT 5.28 10^6/uL (4.00-5.40); WHITE BLOOD COUNT 11.3 10^3/uL (4.0-10.0)
[2023-12-28 14:37] LABS: FERRITIN 94.3 NG/ML (7.3-270.7); FOLATE 11.58 NG/ML (>5.4)
== END ==
LOC: M LAB 12:52
PROVIDERS: ATTEND Internal Medicine Hematology & Oncology
DX: D64.9 Anemia, unspecified (principal)

== ENCOUNTER → 2024-01-13 | Outpatient (REF) | payer BC ==
[~2024-01-13] MED LIST changes: +B-122500 PO; +MAGN250T7 PO
== END ==
LOC: M SFHCWAGY 12:52
PROVIDERS: ATTEND Obstetrics & Gynecology
DX: N93.9 Abnormal uterine and vaginal bleeding, unspecified (principal); N85.8 Other specified noninflammatory disorders of uterus

== ENCOUNTER → 2024-02-03 | Outpatient (CLI) | payer BC ==
[~2024-02-03] MED LIST changes: -AMPH1TAB2; +AMPH1TAB2 PO; -BUSP10TA; +BUSP10TA PO; +FLUO-365 PO; +FLUTISP INH; +ROSU5TAB49 PO
== END ==
LOC: M EKG 17:05
PROVIDERS: ATTEND Anesthesiology
DX: E10.42 Type 1 diabetes mellitus with diabetic polyneuropathy (principal); E10.52 Type 1 diabetes mellitus with diabetic peripheral angiopathy with gangrene

== ENCOUNTER 2024-02-12 11:31 | Day surgery (SDC) | payer BC ==
[~2024-02-12] VITALS: Ht 175.3 cm; Wt 115.2 kg
[2024-02-12 12:09] LABS: HEMOGLOBIN 13.9 g/dl (12.0-15.5); MEAN CORPUSCULAR HEMOGLOBIN 28.8 pg (27.0-33.0); MEAN CORPUSCULAR HGB CONC 32.3 g/dl (32.0-36.5); MEAN CORPUSCULAR VOLUME 89.2 fl (80.0-96.0); PLATELET COUNT, AUTOMATED 427 10^3/uL (150-450); RED BLOOD COUNT 4.82 10^6/uL (4.00-5.40); WHITE BLOOD COUNT 10.2 10^3/uL (4.0-10.0)
[2024-02-12] MEDS ORDERED: LR 1,000 ML IV SCH (12:15)
[2024-02-12] MEDS: ceFAZolin SOD 1 GM in DEXTROSE 5% (D5W) ADV/MINI-BAG 50 ML IV ONE (13:15)
[2024-02-12] MEDS: ceFAZolin SOD 2 GM in IV 1 EA IV ONE (13:15)
[2024-02-12] MEDS: METHYLENE BLUE 0.5% (5MG/ML) 10 ML AMP (PROVAYBLUE) As Ordered ONE (13:30)
[2024-02-12] MEDS ORDERED: KETOROLAC 60MG 2ML VIAL As Ordered ONE (13:45)
[2024-02-12] MEDS ORDERED: propofoL 200 MG/20 ML VIAL As Ordered ONE (13:45)
[2024-02-12] MEDS ORDERED: ROCURONIUM BROMIDE 50MG/5ML VIAL As Ordered ONE (13:45)
[2024-02-12] MEDS ORDERED: HYDROmorphone HCL 2MG/ML 1ML VIAL As Ordered ONE (13:45)
[2024-02-12] MEDS ORDERED: SUGAMMADEX SODIUM 500 MG/5 ML VIAL (BRIDION) As Ordered ONE (13:45)
[2024-02-12] MEDS ORDERED: MIDAZOLAM INJ 2MG/2ML VIAL As Ordered ONE (13:45)
[2024-02-12] MEDS ORDERED: METOCLOPRAMIDE INJ 10MG/2ML VIAL As Ordered ONE (13:45)
[2024-02-12] MEDS ORDERED: LIDOCAINE 2% 100MG/5ML SDV (FOR ANES.) As Ordered ONE (13:45)
[2024-02-12] MEDS ORDERED: ONDANSETRON 4MG 2ML VIAL As Ordered ONE (13:45)
[2024-02-12] MEDS ORDERED: fentaNYL 250 MCG/5 ML INJECTION As Ordered ONE (13:45)
[2024-02-12] MEDS ORDERED: dexmedeTOMIDine (4MCG/ML)200MCG/50ML BTL (PRECEDEX) As Ordered ONE (13:45)
[2024-02-12] MEDS ORDERED: PHENYLephrine 500MCG 5ML (100MCG/ML) SYRINGE As Ordered ONE (13:54)
[2024-02-12] MEDS ORDERED: ONDANSETRON 4MG 2ML VIAL IV PRN ×2 (15:30→15:40)
[2024-02-12] MEDS ORDERED: oxyCODONE 5MG TAB PO PRN (15:30)
[2024-02-12] MEDS ORDERED: fentaNYL 100 MCG/2 ML INJECTION IV PRN (15:30)
[2024-02-12] MEDS ORDERED: MORPHINE 4 MG/ML 1ML VIAL IV PRN (15:40)
[2024-02-12] MEDS ORDERED: PERCOCET 5MG/325MG TAB PO PRN (15:40)
[2024-02-12] MEDS ORDERED: COLA100C5 PO (15:53)
[2024-02-12] MEDS ORDERED: PERCOCET PO (15:53)
[2024-02-12] MEDS ORDERED: IBUP80TA PO (15:53)
[2024-02-12] MEDS: PERCOCET 5MG/325MG TAB PO PRN (18:07)
[2024-02-12 18:26] VITALS: BP 128/63; TEMP 98; O2SAT 94
[2024-02-12] MEDS: LR 1,000 ML IV SCH (18:50)
[2024-02-12 18:55] VITALS: BP 120/61; TEMP 97.6; O2SAT 93
[2024-02-12 19:25] VITALS: BP 119/70; TEMP 97; O2SAT 95
[2024-02-12] MEDS ORDERED: KETOROLAC 30 MG/ML 1ML VIAL IV SCH (20:00)
[2024-02-12 20:25] VITALS: BP 138/88; TEMP 97.8; O2SAT 94
[2024-02-12] MEDS: busPIRone 10 MG TAB PO SCH (21:00)
[2024-02-12 21:25] VITALS: BP 121/64; TEMP 98.2; O2SAT 94
[2024-02-12] MEDS: DOCUSATE SODIUM 100MG CAPSULE PO SCH (21:48)
[2024-02-12] MEDS: KETOROLAC 30 MG/ML 1ML VIAL IV SCH (21:48)
[2024-02-13] MEDS ORDERED: IBUPROFEN 800 MG TAB PO SCH (17:00)
== END 2024-02-12 22:20 | disposition home or self-care (01) ==
LOC: M SDC 11:31 → UNDOADMOB 18:20 → M PED 18:20 → UNDODISOB 22:20 → M SDC 22:20
PROVIDERS: ATTEND Obstetrics & Gynecology
DX: N84.0 Polyp of corpus uteri (principal); N36.8 Other specified disorders of urethra; R10.2 Pelvic and perineal pain; D25.9 Leiomyoma of uterus, unspecified; E11.9 Type 2 diabetes mellitus without complications; T78.40XD Allergy, unspecified, subsequent encounter; F17.210 Nicotine dependence, cigarettes, uncomplicated
CPT/HCPCS: 36415; 53060; 58571; 81025; 85027; 86850; 86900; 86901; 88307; J0665; J0690; J1100; J1171; J1885; J2250; J2371; J2405; J2765; J3010; Q9968; S2900

== ENCOUNTER → 2024-03-01 | Outpatient (REF) | payer BC ==
[~2024-03-01] MED LIST changes: +PERCOCET PO
[2024-03-01 18:04] LABS: BASO # 0.1 10^3/uL (0.0-0.2); BASO % 0.7 % (0.0-1.0); EOS # 0.5 10^3/uL (0.0-0.5); EOS % 6.2 % (0.0-3.0); HEMATOCRIT 42.8 % (36.0-47.0); HEMOGLOBIN 14.2 g/dl (12.0-15.5); LYMPH # 3.4 10^3/uL (1.5-5.0); LYMPH % 40.6 % (24.0-44.0); MEAN CORPUSCULAR HEMOGLOBIN 29.3 pg (27.0-33.0); MEAN CORPUSCULAR HGB CONC 33.2 g/dl (32.0-36.5); MEAN CORPUSCULAR VOLUME 88.4 fl (80.0-96.0); MONO # 0.6 10^3/uL (0.0-0.8); MONO % 7.5 % (2.0-8.0); NEUTROPHILS # 3.7 10^3/uL (1.5-8.5); NEUTROPHILS % 44.3 % (36.0-66.0); PLATELET COUNT, AUTOMATED 383 10^3/uL (150-450); RED BLOOD COUNT 4.84 10^6/uL (4.00-5.40); WHITE BLOOD COUNT 8.4 10^3/uL (4.0-10.0)
[2024-03-01 18:41] LABS: C REACTIVE PROTEIN QUANTITATIV < 0.50 MG/DL (<1.0)
[2024-03-01 18:42] LABS: ALBUMIN 3.9 G/DL (3.2-5.2); ALKALINE PHOSPHATASE 65 U/L (35-104); ALT/SGPT 41 U/L (7.0-40); AST/SGOT 26 U/L (<34); BILIRUBIN,TOTAL 0.3 MG/DL (0.3-1.2); BLOOD UREA NITROGEN 10 MG/DL (9-23); CALCIUM LEVEL 8.9 MG/DL (8.5-10.1); CARBON DIOXIDE LEVEL 30 MMOL/L (20-31); CHLORIDE LEVEL 105 MMOL/L (98-107); FERRITIN 129.2 NG/ML (7.3-270.7); GLOMERULAR FILTRATION RATE > 60.0 (>60); GLUCOSE, FASTING 81 MG/DL (60-100); IRON (FE) 45 UG/DL (50-170); PERCENT SATURATION 13.9 % (13.2-45.0); POTASSIUM SERUM 4.4 MMOL/L (3.5-5.1); SODIUM LEVEL 142 MMOL/L (136-145); TOTAL IRON BINDING CAPACITY 323 UG/DL (250-425); TOTAL PROTEIN 6.9 G/DL (5.7-8.2)
[2024-03-01 18:43] LABS: VITAMIN B12 LEVEL 1210 PG/ML (211-911)
[2024-03-01 18:44] LABS: FOLATE 13.8 NG/ML (>5.4)
== END ==
LOC: M LABDRWAD 17:25
PROVIDERS: ATTEND Internal Medicine Hematology & Oncology
DX: D64.9 Anemia, unspecified (principal)

== ENCOUNTER → 2024-03-29 | Outpatient (CLI) | payer BC | LOC: M PLAIMG 12:10 | PROVIDERS: ATTEND Physician Assistant Surgical | DX: S32.028A Other fracture of second lumbar vertebra, initial encounter for closed fracture (principal); S32.038A Other fracture of third lumbar vertebra, initial encounter for closed fracture; M51.369 Other intervertebral disc degeneration, lumbar region without mention of lumbar back pain or lower extremity pain ==

== ENCOUNTER → 2024-05-30 | Outpatient (REF) | payer BC ==
[2024-05-30 18:42] LABS: FERRITIN 63.6 NG/ML (7.3-270.7)
[2024-05-30 18:44] LABS: BASO # 0.1 10^3/uL (0.0-0.2); BASO % 1.1 % (0.0-1.0); EOS # 0.5 10^3/uL (0.0-0.5); EOS % 4.7 % (0.0-3.0); HEMATOCRIT 45.6 % (36.0-47.0); HEMOGLOBIN 14.4 g/dl (12.0-15.5); LYMPH # 3.3 10^3/uL (1.5-5.0); LYMPH % 30.8 % (24.0-44.0); MEAN CORPUSCULAR HEMOGLOBIN 28.5 pg (27.0-33.0); MEAN CORPUSCULAR HGB CONC 31.6 g/dl (32.0-36.5); MEAN CORPUSCULAR VOLUME 90.1 fl (80.0-96.0); MONO # 0.7 10^3/uL (0.0-0.8); MONO % 6.6 % (2.0-8.0); NEUTROPHILS % 56.3 % (36.0-66.0); PLATELET COUNT, AUTOMATED 367 10^3/uL (150-450); RED BLOOD COUNT 5.06 10^6/uL (4.00-5.40); VITAMIN B12 LEVEL 505 PG/ML (211-911); WHITE BLOOD COUNT 10.6 10^3/uL (4.0-10.0)
[2024-05-30 18:45] LABS: ALBUMIN 3.8 G/DL (3.2-5.2); ALKALINE PHOSPHATASE 61 U/L (35-104); ALT/SGPT 30 U/L (7.0-40); AST/SGOT 13 U/L (<34); BILIRUBIN,TOTAL 0.3 MG/DL (0.3-1.2); BLOOD UREA NITROGEN 9 MG/DL (9-23); CALCIUM LEVEL 9.5 MG/DL (8.5-10.1); CARBON DIOXIDE LEVEL 28 MMOL/L (20-31); CHLORIDE LEVEL 107 MMOL/L (98-107); GLOMERULAR FILTRATION RATE > 90.0 (>60); GLUCOSE, FASTING 72 MG/DL (60-100); IRON (FE) 49 UG/DL (50-170); PERCENT SATURATION 15.3 % (13.2-45.0); POTASSIUM SERUM 4.9 MMOL/L (3.5-5.1); SODIUM LEVEL 142 MMOL/L (136-145); TOTAL IRON BINDING CAPACITY 320 UG/DL (250-425); TOTAL PROTEIN 6.7 G/DL (5.7-8.2)
[2024-05-30 18:47] LABS: FOLATE 8.76 NG/ML (>5.4)
== END ==
LOC: M LABDRWAD 17:19
PROVIDERS: ATTEND Internal Medicine Hematology & Oncology
DX: D64.9 Anemia, unspecified (principal)

== ENCOUNTER → 2024-05-30 | Outpatient (REF) | payer BC ==
[2024-05-30 18:39] LABS: ALBUMIN 3.8 G/DL (3.2-5.2); ALKALINE PHOSPHATASE 61 U/L (35-104); ALT/SGPT 30 U/L (7.0-40); AST/SGOT 14 U/L (<34); BILIRUBIN,TOTAL 0.3 MG/DL (0.3-1.2); BLOOD UREA NITROGEN 10 MG/DL (9-23); CALCIUM LEVEL 9.6 MG/DL (8.5-10.1); CARBON DIOXIDE LEVEL 28 MMOL/L (20-31); CHLORIDE LEVEL 108 MMOL/L (98-107); CHOLESTEROL LEVEL 160 MG/DL (<200); CHOLESTEROL RISK RATIO 3.48 (<5); CREATININE FOR GFR 0.79 MG/DL (0.55-1.30); GLOMERULAR FILTRATION RATE > 90.0 (>60); GLUCOSE, FASTING 74 MG/DL (60-100); HDL CHOLESTEROL 45.9 MG/DL (>40); LDL CHOLESTEROL 86.1 MG/DL (<100); NON-HDL-C 114.1 MG/DL; POTASSIUM SERUM 5.3 MMOL/L (3.5-5.1); SODIUM LEVEL 143 MMOL/L (136-145); TOTAL PROTEIN 6.7 G/DL (5.7-8.2); TRIGLYCERIDES LEVEL 140 MG/DL (<150)
== END ==
LOC: M LABDRWAD 17:21
PROVIDERS: ATTEND Registered Nurse
DX: E11.9 Type 2 diabetes mellitus without complications (principal); E78.00 Pure hypercholesterolemia, unspecified

== ENCOUNTER → 2024-06-30 | Outpatient (REF) | payer BC ==
[~2024-06-30] MED LIST changes: -FLOM0.4C39 PO; +SEMA2PEN SQ; +TAMS-18 PO; +TIZA2CAP PO
[2024-06-30 19:50] LABS: HEMOGLOBIN A1c 5.6 % (4.0-6.0)
== END ==
LOC: M LABDRWAD 17:03
PROVIDERS: ATTEND Registered Nurse
DX: E78.5 Hyperlipidemia, unspecified (principal); E11.9 Type 2 diabetes mellitus without complications

== ENCOUNTER → 2024-08-02 | Outpatient (CLI) | payer BC ==
[2024-08-11 01:12] LABS: DEAMIDATED GLIADIN ABS, IgA < 1.0 U/mL (<15.0); DEAMIDATED GLIADIN ABS, IgG < 1.0 U/mL (<15.0); IMMUNOGLOBULIN A CELIAC 270 mg/dL (47-310); t-TRANSGLUTAMINASE(tTG) IgA < 1.0 U/mL (<15.0); t-TRANSGLUTAMINASE(tTG) IgG < 1.0 U/mL (<15.0)
== END ==
LOC: M LAB 17:21
PROVIDERS: ATTEND Internal Medicine Gastroenterology
DX: D50.9 Iron deficiency anemia, unspecified (principal)

== ENCOUNTER → 2024-11-21 | Outpatient (CLI) | payer BC | LOC: M PLAIMG 15:08 | PROVIDERS: ATTEND Otolaryngology | DX: J32.8 Other chronic sinusitis (principal); J34.2 Deviated nasal septum ==

== ENCOUNTER → 2024-12-06 | Outpatient (CLI) | payer BC ==
[2024-12-06 16:21] LABS: BASO # 0.1 10^3/uL (0.0-0.2); BASO % 0.9 % (0.0-1.0); EOS # 0.3 10^3/uL (0.0-0.5); EOS % 2.4 % (0.0-3.0); LYMPH # 3.1 10^3/uL (1.5-5.0); LYMPH % 28.2 % (24.0-44.0); MONO # 0.6 10^3/uL (0.0-0.8); MONO % 5.5 % (2.0-8.0); NEUTROPHILS # 6.9 10^3/uL (1.5-8.5); NEUTROPHILS % 62.6 % (36.0-66.0); PLATELET COUNT, AUTOMATED 420 10^3/uL (150-450)
[2024-12-06 16:55] LABS: IRON (FE) 43.0 UG/DL (50-170); PERCENT SATURATION 13.2 % (13.2-45.0)
== END ==
LOC: M LAB 15:56
PROVIDERS: ATTEND Internal Medicine Gastroenterology
DX: D50.9 Iron deficiency anemia, unspecified (principal); R14.2 Eructation; Z86.0100 Personal history of colon polyps, unspecified

== ENCOUNTER → 2024-12-27 | Outpatient (CLI) | payer BC ==
[~2024-12-27] MED LIST changes: +PRIL20TA2 PO
[2024-12-27 13:08] LABS: BASO # 0.1 10^3/uL (0.0-0.2); BASO % 0.7 % (0.0-1.0); EOS # 0.4 10^3/uL (0.0-0.5); EOS % 3.6 % (0.0-3.0); LYMPH # 3.1 10^3/uL (1.5-5.0); LYMPH % 27.8 % (24.0-44.0); MONO # 0.6 10^3/uL (0.0-0.8); MONO % 5.5 % (2.0-8.0); NEUTROPHILS # 6.9 10^3/uL (1.5-8.5); NEUTROPHILS % 61.9 % (36.0-66.0); PLATELET COUNT, AUTOMATED 443 10^3/uL (150-450)
[2024-12-27 13:39] LABS: IRON (FE) 74 UG/DL (50-170)
[2024-12-27 13:40] LABS: ALT/SGPT 36 U/L (7.0-40); AST/SGOT 23 U/L (<34); CALCIUM LEVEL 9.2 MG/DL (8.5-10.1); CARBON DIOXIDE LEVEL 28 MMOL/L (20-31); CHLORIDE LEVEL 103 MMOL/L (98-107); CREATININE FOR GFR 0.77 MG/DL (0.55-1.30); GLOMERULAR FILTRATION RATE > 90.0 (>58); PERCENT SATURATION 24.3 % (13.2-45.0); POTASSIUM SERUM 4.7 MMOL/L (3.5-5.1); SODIUM LEVEL 140 MMOL/L (136-145); VITAMIN B12 LEVEL 364 PG/ML (211-911)
== END ==
LOC: M LABDRWAD 10:13
PROVIDERS: ATTEND Internal Medicine Hematology & Oncology
DX: D50.9 Iron deficiency anemia, unspecified (principal)

== ENCOUNTER → 2025-01-31 | Outpatient (CLI) | payer BC ==
[2025-01-31 14:07] LABS: PLATELET COUNT, AUTOMATED 416 10^3/uL (150-450)
[2025-01-31 14:15] LABS: RHEUMATOID FACTOR QUANT 5.1 IU/ML (<14)
[2025-01-31 14:16] LABS: ALT/SGPT 40 U/L (7.0-40); AST/SGOT 23 U/L (<34); CALCIUM LEVEL 9.5 MG/DL (8.5-10.1); CARBON DIOXIDE LEVEL 29 MMOL/L (20-31); CHLORIDE LEVEL 102 MMOL/L (98-107); CHOLESTEROL LEVEL 204 MG/DL (<200); CHOLESTEROL RISK RATIO 4.45 (<5); CREATININE FOR GFR 0.81 MG/DL (0.55-1.30); GLOMERULAR FILTRATION RATE > 90.0 (>58); IRON (FE) 66 UG/DL (50-170); LDL CHOLESTEROL 127.0 MG/DL (<100); MAGNESIUM LEVEL 2.1 MG/DL (1.8-2.4); NON-HDL-C 158.2 MG/DL; POTASSIUM SERUM 3.9 MMOL/L (3.5-5.1); SODIUM LEVEL 142 MMOL/L (136-145); THYROID PEROXIDASE ANTIBODY 29 U/ML (<60.0); THYROXINE (T4) 7.3 UG/DL (4.5-10.9); TRIGLYCERIDES LEVEL 156 MG/DL (<150)
[2025-01-31 14:17] LABS: FREE T4 1.09 NG/DL (0.89-1.76); VITAMIN B12 LEVEL 407 PG/ML (211-911)
[2025-01-31 14:40] LABS: CREATININE, URINE 103.2 MG/DL; MALB URINE SIEMENS 17.0 MG/L; MAU/CREAT RATIO 16.4 MCG/MG (0.0-30.0)
[2025-01-31 15:13] LABS: ESTIMATED AVERAGE GLUCOSE 114.0 MG/DL (60-110)
[2025-02-02 12:48] LABS: EBV AB TO NUCLEAR ANTIGEN 195.00 U/mL (<18.00); EBV VIRAL CAPSID AG IGG > 750.00 U/mL (<18.00); EBV VIRAL CAPSID AG IGM < 36.00 U/mL (<36.00)
== END ==
LOC: M LABDRWAD 09:54
PROVIDERS: ATTEND Registered Nurse
DX: E11.9 Type 2 diabetes mellitus without complications (principal); D50.9 Iron deficiency anemia, unspecified; R53.83 Other fatigue; E78.2 Mixed hyperlipidemia